=== PATIENT | male | born 1995 | race Caucasian/White ===

== ENCOUNTER 2022-08-13 22:35 | Outpatient (CLI) | payer OTHER, SELFPAY | END 2022-08-13 22:36 | disposition home or self-care (01) | LOC: AMB 09-14 12:08 | PROVIDERS: Visit Provider Family Medicine | DX: R51.9 Headache, unspecified (principal); F91.9 Conduct disorder, unspecified; F29 Unspecified psychosis not due to a substance or known physiological condition | CPT/HCPCS: A0425; A0427 ==

== ENCOUNTER 2022-09-01 22:47 | Outpatient (CLI) | payer OTHER, SELFPAY | END 2022-09-01 22:48 | disposition home or self-care (01) | LOC: AMB 09-22 00:37 | PROVIDERS: Visit Provider Internal Medicine | DX: R45.850 Homicidal ideations (principal) | CPT/HCPCS: A0425; A0427 ==

== ENCOUNTER 2022-09-30 21:26 | Outpatient (CLI) | payer OTHER, SELFPAY | END 2022-09-30 21:27 | disposition home or self-care (01) | LOC: AMB 10-05 02:47 | PROVIDERS: Visit Provider Family Medicine | DX: F29 Unspecified psychosis not due to a substance or known physiological condition (principal) | CPT/HCPCS: A0425; A0429 ==

== ENCOUNTER 2022-10-01 22:16 | Outpatient (CLI) | payer OTHER, SELFPAY | END 2022-10-01 22:17 | disposition home or self-care (01) | LOC: AMB 10-05 12:32 | PROVIDERS: Visit Provider Internal Medicine | DX: R45.851 Suicidal ideations (principal) | CPT/HCPCS: A0425; A0429 ==

== ENCOUNTER 2022-10-10 22:58 | Outpatient (CLI) | payer OTHER, SELFPAY | END 2022-10-10 22:59 | disposition home or self-care (01) | LOC: AMB 10-11 01:59 | PROVIDERS: Visit Provider Family Medicine | DX: F91.9 Conduct disorder, unspecified (principal) | CPT/HCPCS: A0425; A0427 ==

== ENCOUNTER 2022-10-12 21:24 | Outpatient (CLI) | payer OTHER, SELFPAY | END 2022-10-12 21:25 | disposition home or self-care (01) | LOC: AMB 10-17 17:02 | PROVIDERS: Visit Provider Internal Medicine | DX: F29 Unspecified psychosis not due to a substance or known physiological condition (principal) ==

== ENCOUNTER 2022-12-14 22:51 | Outpatient (CLI) | payer OTHER, SELFPAY | END 2022-12-14 22:52 | disposition home or self-care (01) | PROVIDERS: Visit Provider Internal Medicine | DX: F29 Unspecified psychosis not due to a substance or known physiological condition (principal) | CPT/HCPCS: A0425; A0429 ==

== ENCOUNTER 2023-04-27 23:46 | Outpatient (CLI) | payer OTHER, SELFPAY | END 2023-04-27 23:47 | disposition home or self-care (01) | LOC: AMB 04-29 09:48 | PROVIDERS: Visit Provider Family Medicine | DX: R51.9 Headache, unspecified (principal) | CPT/HCPCS: A0425; A0429 ==

== ENCOUNTER 2024-04-06 22:58 | Outpatient (CLI) | payer OTHER, SELFPAY | END 2024-04-06 22:59 | disposition home or self-care (01) | LOC: AMB 04-13 18:49 | PROVIDERS: Visit Provider Family Medicine | DX: F41.9 Anxiety disorder, unspecified (principal) | CPT/HCPCS: A0425; A0427 ==

== ENCOUNTER 2024-12-12 22:42 | Outpatient (CLI) | payer OTHER, SELFPAY | END 2024-12-12 22:43 | disposition home or self-care (01) | LOC: AMB 12-14 14:06 | PROVIDERS: Visit Provider Family Medicine | DX: R45.851 Suicidal ideations (principal) | CPT/HCPCS: A0425; A0429 ==

== ENCOUNTER 2025-03-27 23:20 | Outpatient (CLI) | payer OTHER, SELFPAY | END 2025-03-27 23:21 | disposition home or self-care (01) | LOC: AMB 03-29 11:37 | PROVIDERS: Visit Provider Family Medicine | DX: R45.851 Suicidal ideations (principal) | CPT/HCPCS: A0425; A0429 ==

== ENCOUNTER 2025-03-29 18:27 | Outpatient (CLI) | payer OTHER, SELFPAY ==
--- OUTSIDE RECORDS SUMMARY | 2025-03-03 12:00 | XMS_ITS | Encounter Summary ---
Author Organization [employer] Address [address] [place] [address] Care Team Providers Care [employer] Name Role Phone Jocelyne Devlin PA-C Primary Care Provider [phone] Encounter Details Date Type Department Care Team (Late Contact Info) Description 03/03/2025 12:00 PM CDT Lab Visit [facility] [address] [place] [address] Medication monitoring encounter (Primary Dx); Encounter for long-term (current) use of medications Social History Tobacco Use Types Packs/Day Years Used Date Smoking Tobacco: Never Smokeless Tobacco: Never Alcohol Use Standard Drinks/Week Comments No 0 (1 standard drink = 0.6 oz pur e alcohol) PHQ-2 Answer Date Recorded PHQ-2 Score 3 06/10/2019 Financial Resource Strain Answer Date R ecorded Is it hard for you to pay fo r the very basics like food, housing, medical care or heating? No 01/02/2023 Food Insecurity Answer Date Recorded Does your food run out before you have the money to buy more? No 01/02/2023 Transportation Needs Answer Date Record ed Does a lack of transportatio n keep you from your medical appointments or from getting your medications? 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 [address] Scheduled Orders Name Type Priority Associated Diagnoses Orde r Schedule CBC and Differential Lab Routine Encounter for long-term (current) use of medications 4 weeks for 12 Occurrences starting 03/03/2025 until 03/03/2026 documented as of this encounter Procedures Procedure Name Priority Date/Time Associated Diagnosis Comments PRELIMINARY AUTOMATED NEUT COUNT Routine 03/03/2025 11:58 AM CDT Encounter for long-term (current) use of medications CBC WITH DIFFERENTIAL REVIEW Routine 03/03/2025 11:58 AM CDT Encounter for long-term (current) use of medications HEMATOLOGY, PRELIM Routine 03/03/2025 11 :58 AM CDT Encounter for long-term (current) use of medications documented in this encounter Results * (ABNORMAL) CBC with Differential Review (03/03/2025 11:58 AM CDT) [facility] Hematology Review 03/03/2025 7:03 PM CDT [facility] WBC 4.6 3.5 - 10.5 x10(9)/L 03/03/2025 7:03 PM CDT [facility] RBC 4.55 4.32 - 5.72 x10(12)/L 03/03/2025 7:03 PM CDT [facility] Hemoglobin 13.4(L) 13.5 - 17.5 g/dL 03/03/2025 7:03 PM CDT [facility] HCT 40.6 38.8 - 50.0 % 03/03/2025 7:03 PM CDT [facility] MCV 89.2 80.0 - 100.0 fL 03/03/2025 7:03 PM CDT [facility] MCH 29.5 27.6 - 33.3 pg 03/03/2025 7:03 PM CDT [facility] MCHC 33.0 31.5 - 35.2 g/dL 03/03/2025 7:03 PM CDT [facility] RDW 13.7 11.9 - 15.5 % 03/03/2025 7:03 PM CDT [facility] Platelets 176 150 - 450 x10(9)/L 03/03/2025 7:03 PM CDT [facility] Automated NRBC 0 <=0 /100 WBC 03/03/2025 7:03 PM CDT [facility] Neutrophil Absolute 2.1 1.7 - 7.0 10(9)/L 03/03/2025 7:03 PM CDT [facility] Lymphocyte Absolute 2.1 1.0 - 4.8 10(9)/L 03/03/2025 7:03 PM CDT [facility] Monocyte Absolute 0.3 0.2 - 0.9 10(9)/L 03/03/2025 7:03 PM CDT [facility] Eosinophil Absolute 0.2 0.0 - 0.5 10(9)/L 03/03/2025 7:03 PM CDT [facility] Basophil Absolute 0.0 0.0 - 0.3 10(9)/L 03/03/2025 7:03 PM CDT [facility] Immature Granulocyte % 0.7(H) 0.0 - 0.5 % 03/03/2025 7:03 PM CDT [facility] Immature Granulocyte Absolute 0.0 <=0.0 10(9)/L 03/03/2025 7:03 PM CDT [facility] Blood Venipuncture / Unknown 03/03/2025 11:58 AM CDT 03/03/2025 12:30 PM CDT Shashi Rodriguez APRN, PBX OPERATOR LAB_1 Final Result Performing Organization Address [facility] Co de Phone Number [facility] [address] * Prelim Automated Neutrophil Count (03/03/2025 11:58 AM CDT) [facility] Automated Neutrophil Count (Prelim) 2.0 10(9)/L 03/03/2025 12:30 PM CDT [facility] Blood Venipuncture / Unknown 03/03/2025 11:58 AM CDT 03/03/2025 11:58 AM CDT Shashi Rodriguez APRN, PBX OPERATOR LAB_1 Final Result Performing Organization Address [facility] de Phone Number [facility] [address] [email or web address] [phone] * (ABNORMAL) Prelim WBC, HGB, and PLT (03/03/2025 11:58 AM CDT) [facility] Signature WBC 4.7 3.5 - 10.5 x10(9)/L 03/03/2025 12:29 PM CDT [facility] Hemoglobin 13.4(L) 13.5 - 17.5 g/dL 03/03/2025 12:29 PM CDT [facility] Platelets 175 150 - 450 x10(9)/L 03/03/2025 12:29 PM CDT [facility] Blood Venipuncture / Unknown 03/03/2025 11:58 AM CDT 03/03/2025 11:58 AM CDT Shashi Rodriguez APRN, PBX OPERATOR LAB_1 Final Result Performing Organization Address [facility] de Phone Number [facility] [address] [email or web address] [address] documented in this encounter Visit Diagnoses Diagnosis Medication monitoring encounter- Primary Encounter for therapeutic drug monitoring Encounter for long-term (current) use of medications Encounter for long-term (current) use of other medications documented in this encounter Care Teams [employer] Relationship Specialty Start Date End Date Jocelyne Devlin PA-C [address] [place] [place] [address] PCP - General Physician Medical Coding Specialist 08/28/16 documented as of this encounter
--- OUTSIDE RECORDS SUMMARY | 2025-03-27 23:56 | XMS_ITS | Encounter Summary ---
Author Organization [facility] Address [address] [place] [address]. [place] [address] Care Team Providers Care [employer] Internet Sales Manager Name Role Phone Kolton Abreu MD Primary Care Provider [phone] Provider, Behavioral Unavailable Unavailable Gregorio Wilson PA-C Unavailable [phone] Mitchel Nassar AuD Unavailable [phone] Gabrielle Machado MD Unavailable [phone] Gabrielle Machado MD Unavailable [phone] Reason for Visit * Reason Comments Suicidal Encounter Details Date Type Department Care Team (Late st Contact Info) Description 03/27/2025 11:56 PM CDT - 03/28/2025 12:44 PM CDT Emergency [facility] Emergency Dept [address] [place] [address] Jerson Lopez MD [facility] [address] [place] [address] Lewis Trimble MD [facility] [address] [place] [address] Joon Grigsby MD [facility] [address] [place], [place] [id number] Suicidal ideation Discharge Disposition: Care Home Social History Tobacco Use Types Packs/Day Years Used Date Smoking Tobacco: Never Smokeless Tobacco: Never Alcohol Use Standard Drinks/Week Comments Never 0 (1 standard drink = 0.6 oz pur e alcohol) PHQ-2 Answer Date Recorded PHQ-2 Score 0 01/19/2025 Adolescent Education Answer Date Record ed Getting School Help Needed Not on file 07/23 Sex and Gender Information Value Date Recorded Sex Assigned at Not on file Legal Sex 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 Gender Identity Not on file Sexual Orientation Not on file documented as of this encounter Last Filed Vital Signs Vital Sign Reading Time Taken Comments Blood Pressure 135/82 03/28/2025 11:34 AM CDT Pulse 81 03/28/2025 11:34 AM CDT Temperature 36.4 C (97.6 F) 03/28/2025 1:32 AM CDT Respiratory Rate 18 03/28/2025 7:39 AM CDT Oxygen Saturation 96% 03/28/2025 11:34 AM CDT Inhaled Oxygen Concentration - - Weight - - Height - - Body Mass Index - - documented in this encounter Functional Status * Calculated C-SSRS Risk Score (Lifetime/Recent) Answer Date of Assessment Author No Risk Indicated 03/28/2025 11:46 AM CDT Paylen , Mo V, TEASEL GIG OPERATOR * Question Answer Date of Assessment Author 3. Active Suicidal Ideation with any Methods (Not Plan) Without Intent to Act (Lifetime) Yes 03/28/2025 11:44 AM CDT Paylen, Mo V, TEASEL GIG OPERATOR 4. Active Suicidal Ideation with Some Intent to Act, Without Specific Plan (Lifetime) Yes 03/28/2025 11:44 AM CDT Paylen, Mo V, TEASEL GIG OPERATOR 5. Active Suicidal Ideation with Specific Plan and Intent (Lifetime) No 03/28/2025 11:44 AM CDT Paylen, Mo V, MAR ELEMENT WINDING MACHINE TENDER * Question Answer Date of Assessment Author Frequency (Past 1 Month) 1 03/28/2025 11:46 AM CDT Paylen, Mo V, TEASEL GIG OPERATOR Duration (Past 1 Month) 1 03/28/2025 11:46 AM CDT Paylen, Mo V, TEASEL GIG OPERATOR Controllability (Past 1 Month) 3 03/28/2025 11:46 AM CDT Paylen, Mo V, TEASEL GIG OPERATOR Deterrents (Past 1 Month) 1 03/28/2025 11:4 6 AM CDT Paylen, Mo V, TEASEL GIG OPERATOR * Question Answer Date of Assessment Author Actual Attempt (Past 3 Months) No 03/28/2025 11:46 AM CDT Paylen, Mo V, TEASEL GIG OPERATOR Has subject engaged in non-suicidal self-injurious behavior? (Past 3 Months) No 03/28/2025 11:46 AM CDT Paylen, Mo V, TEASEL GIG OPERATOR Interrupted Attempts (Past 3 Months) No 03/28/2025 11:46 AM CDT Paylen, Mo V, LI ELEMENT WINDING MACHINE TENDER Aborted or Self-Interrupted Attempt (Past 3 Months) No 03/28/2025 11:46 AM CDT Paylen, Mo V , TEASEL GIG OPERATOR Preparatory Acts or Behavior (Past 3 Months) No 03/28/2025 11:46 AM CDT Paylen, Mo V, LI ELEMENT WINDING MACHINE TENDER * Question Answer Date of Assessment Author Actual Attempt (Lifetime) No 03/28/2025 11:4 4 AM CDT Paylen, Mo V, TEASEL GIG OPERATOR Has subject engaged in non-suicidal self-injurious behavior? (Lifetime) No 03/28/2025 11:44 AM CDT Paylen, Mo V, L ICSW Interrupted Attempts (Lifetime) No 11:44 AM CDT Paylen, Mo V, TEASEL GIG OPERATOR Aborted or Self-Interrupted Attempt (Lifetime) No 03/28/2025 11:44 AM CDT Paylen, Mo V, LI ELEMENT WINDING MACHINE TENDER Preparatory Acts or Behavior (Lifetime) No 03/28/2025 11:44 AM CDT Paylen, Mo V, LI ELEMENT WINDING MACHINE TENDER * Question Answer Date of Assessment Author Description of Most Severe Ideation (Lifetime) Patient often reports S/I when he is disappointed or frustrated. No known suicide attempts. 03/28/2025 11:44 AM CDT Paylen, Mo V, TEASEL GIG OPERATOR Frequency (Lifetime) 1 03/28/2025 11:44 AM CDT Paylen, Mo V, TEASEL GIG OPERATOR Duration (Lifetime) 1 03/28/2025 1 1:44 AM CDT Paylen, Mo V, TEASEL GIG OPERATOR Controllability (Lifetime) 3 03/28 11:44 AM CDT Paylen, Mo V, TEASEL GIG OPERATOR Deterrents (Lifetime) 1 03/28/2025 11:44 AM CDT Paylen, Mo V, TEASEL GIG OPERATOR documented as of this encounter Discharge Instructions * Discharge Instructions* Joon Grigsby MD - 03/28/2025 6:28 AM CDT Please return to ER with any new or troubling symptoms. Discharge Instructions Mental Health Concerns You were seen today for mental health concerns, such as depression, anxiety, or suicidal thinking. Your provider feels that you do not require hospitalization at this time. However, your symptoms maybecome worse, and you may need to return to the Emergency Department. Most treatments of depressionand suicidal thoughts are a process rather than a single intervention. Medications and counseling can take several weeks or more to help. Generally, every Emergency Department visit should have a follow-up clinic visit with either a primary or a specialty clinic/provider. Please follow-up as instructed by your emergency provider today. By accepting these discharge instructions: You promise to not harm yourself or others. You agree that if you feel you are becoming unable to keep that promise, you will do something to help yourself before you do anything to harm yourself or others. You agree to keep any safety plan arranged on your visit here today. You agree to take any medication prescribed or recommended by your provider. If you are getting worse, you can contact a friend or a family member, contact your counselor or family provider, contact a crisis line, or other options discussed with the provider or therapist today. At any time, you can call 911 and return to the Emergency Department for more help. You understand that follow-up is essential to your treatment, and you will make and keep appointments recommended on your visit today. How to improve your mental health and prevent suicide: Involve others by letting family, friends, counselors know. Do not isolate yourself. Avoid alcohol or drugs. Remove weapons, poisons from your home. Try to stick to routines for eating, sleeping and getting regular exercise. Try to get into sunlight. Bright natural light not only treats seasonal affective disorder but alsodepression. Increase safe activities that you enjoy. If you feel worse, contact [phone] ( ), or call 911, or your primary provider/counselor for additional assistance. If you were given a prescription for medicine here today, be sure to read all of the information (including the package insert) that comes with your prescription. This will include important information about the medicine, its side effects, and any warnings that you need to know about. The pharmacist who fills the prescription can provide more information and answer questions you may have about the medicine. If you have questions or concerns that the pharmacist cannot address, please call or return to the Emergency Department. Remember that you can always come back to the Emergency Department if you are not able to see your regular provider in the amount of time listed above, if you get any new symptoms, or if there is anything that worries you. * Attachments The following attachments cannot be sent through Care Everywhere. * Mental Health Crisis: Getting Help: General Info (Tristanian) documented in this encounter Medications at Time of Discharge acetic acid (VOSOL) 2 % otic solution Place 4 drops into both ears twice a week amLODIPine (NORVASC) 5 MG tablet Take 1 tablet by mouth daily. 06/15/2021 atorvastatin (LIPITOR) 20 MG tablet Take 20 mg by mouth at bedtime. atropine 1 % ophthalmic solution Place 1-2 drops under the tongue 3 times daily. clindamycin (CLEOCIN T) 1 % external lotion Apply topically 2 times daily cloZAPine (CLOZARIL) 100 MG tablet Take 300 mg by mouth at bedtime. Take with 50mg tablet for total dose of 350 mg at bedtime cloZAPine (CLOZARIL) 25 MG tablet Take 100 mg by mouth daily. cloZAPine (CLOZARIL) 50 MG tablet Take 50 mg by mouth at bedtime. Take with [id number] tablets for total dose of 350 mg at bedtime divalproex sodium delayed-release (DEPAKOTE) [address] tablet Take 1,000 mg by mouth 2 times daily. 07/18/2021 docusate sodium (COLACE) 100 MG capsule Take 100 mg by mouth 2 times daily escitalopram (LEXAPRO) 20 MG tablet Take 20 mg by mouth daily. fish oil-omega-3 fatty acids 500 MG capsule Take 500 mg by mouth daily fluticasone (FLONASE) 50 MCG/ACT nasal spray INSTILL 2 SPRAYS IN EACH NOSTRIL DAILY 01/04/2021 ketoconazole (NIZORAL) 2 % external shampoo Apply topically every 3 days After showers levothyroxine (SYNTHROID/LEVOT HROID) 50 MCG tablet Take 50 mcg by mouth daily 01/02/2022 loratadine (CLARITIN) 10 MG tablet Take 10 mg by mouth daily 05/09/2022 melatonin 5 MG CAPS Take 5 mg by mouth At Bedtime OLANZapine zydis (ZYPREXA) [address] 15 mg under the tongue daily as needed (extreme agitation) omeprazole (PRILOSEC) [address] capsule Take 20 mg by mouth daily 01/22/2022 ondansetron (ZOFRAN ODT) 4 MG ODT tab Take 4 mg by mouth every 8 hours as needed for nausea polyethylene glycol (MIRALAX) 17 GM/Dose powder Take 1 capful by mouth daily propranolol (INDERAL) 40 MG tablet Take 40 mg by mouth 3 times daily 05/09/2022 documented as of this encounter Progress Notes * Benitez Garcia LGSW - 03/28/2025 2:36 AM CDT 03/28/25 0235 Collateral Information Is there collateral information No (Attempted Yenifer (PREPARED FOODS SUPERVISOR, ) & Jo-Ann (oncall supervisior, ): no anwer and LVM) Cosigned by Alissa Borrego LICSW at 03/30/2025 10:33 AM CDT Associated attestation - Alissa Borrego LICSW - 03/30/2025 10:33 AM CDT Service Performed and Documented by Psychotherapist Trainee working under clincial supervision of BRITT Arreola LICSW. Note reviewed and approved on March 30, 2025. BRITT Arreola LICSW, EXPORT PACKER Lead Licensed Psychotherapist Triage & Transition Services (DEC) documented in this encounter Consult Notes * Jaden Malhotra LICSW - 03/28/2025 10:30 AM CDTAssociated Order(s): DIAGNOSTIC EVALUATION CENTER (DEC) ASSESSMENT ORDER Diagnostic Evaluation Consultation Crisis Assessment Patient Name: Simba Nassar Age: [age] year old Legal Sex: male Gender Identity: male Pronouns: Race: White Ethnicity: or Language: Tristanian Patient was assessed: Virtual: [employer] Crisis Assessment Start Date: 03/28/25 Crisis Assessment Start Time: 1044 Crisis Assessment Stop Time: 0114 Patient location: [facility] Emergency Dept ED20 Referral Data and Chief Complaint Simba Nassar presents to the ED via EMS. Patient is presenting to the ED for the following concerns: Anxiety, Suicidal ideation, Depression. Factors that make the mental health crisis life threatening or complex are: Simba Nassar is a [age] year old male who identifies as and Yazidi. Regular visits to the ED for vague complaints of S/I, suspected secondary gain for snacks/attention. Patient has a hx of PDD, FAS, ADHD, ASD and Intermittent Explosive Disorder. He resides in a alf. Patient reports being sad/frustrated that his mother could not come for a visit yesterday. According to report patient left alf and was found by police. Patient reported at t hat time feeling suicidal, which resulted in visit to the ED for further evaluation. Upon interviewthe patient is calm, cooperative, flat and is not able to provide much detail relating to mental health symptoms. Patient states is is prescribed medications and is compliant; he states his staff administer medication. Patient states he feeling suicidal sometimes, but I wouldn't do that. Patient denies use of substances. He reports his legal guardians are his parents.. Informed Consent and Assessment Methods Explained the crisis assessment process, including applicable information disclosures and limits toconfidentiality, assessed understanding of the process, and obtained consent to proceed with the assessment. Assessment methods included conducting a formal interview with patient, review of medical records, collaboration with medical staff, and obtaining relevant collateral information from familyand community providers when available. : done History of the Crisis Pt has multiple visits to the ED, per notes suspected visits to ED for secondary gain of snacks andattention. Client often reports S/I when disappointed/upset. Patient has prior mental health admissions, most recently at [facility] in January of 2016. Mental health dx include PMH: FAS, ASD, ADHD, DD, IEPand PDD. Patient's adoptive parents are his legal guardians. Patient denies previous suicide attempt. Brief Psychosocial History Family: Single, Children no Support System: Facility resident(s)/Staff, Parent(s) Employment Status: disabled Source of Income: disability Financial Environmental Concerns: none Current Hobbies: social media/computer activities, television/movies/videos Barriers in Personal Life: mental health concerns, lack of motivation, behavioral concerns, cognitive limitations Significant Clinical History Current Anxiety Symptoms: excessive worry, anxious Current Depression/Trauma: withdrawl/isolation, avoidance, apathy, sense of doom, thoughts of /suicide Current Somatic Symptoms: anxious Current Psychosis/Thought Disturbance: Current Eating Symptoms: Chemical Use History: Alcohol: None Benzodiazepines: None Opiates: None Cocaine: None Marijuana: None Other Use: None Past diagnosis: Anxiety Disorder, ADHD, Depression, Autism Family history: Substance Use Disorder Past treatment: Individual therapy, Case management, Primary Care, Supportive Living Environment (alf, longterm house, etc), Psychiatric Medication Management, Inpatient Hospitalization Details of most recent treatment: Enzo lives in a alf and receives medication management andbehavioral coaching. Other relevant history: Have there been any medication changes in the past two weeks: no Is the patient compliant with medications: yes Collateral Information Is there collateral information: No (No, contacted both parents/legal guardians, no answer- Sergio- [phone] and mother Sruthi [phone]. Left voicemail on Sergio's phone 03/28 @ 11:35 am) Collateral information name, relationship, phone number: What happened today: What is different about patient's functioning: What do you think the patient needs: Has patient made comments about wanting to kill themselves/others: If d/c is recommended, can they take part in safety/aftercare planning: Additional collateral information: Risk Assessment [place] Suicide Severity Rating Scale Full Clinical Version: Suicidal Ideation Q1 Wish to be (Lifetime): Yes Q2 Non-Specific Active Suicidal Thoughts (Lifetime): Yes 3. Active Suicidal Ideation with any Methods (Not Plan) Without Intent to Act (Lifetime): Yes 4. Active Suicidal Ideation with Some Intent to Act, Without Specific Plan (Lifetime): Yes 5. Active Suicidal Ideation with Specific Plan and Intent (Lifetime): No Q6 Suicide Behavior (Lifetime): no Intensity of Ideation (Lifetime) Description of Most Severe Ideation (Lifetime): Patient often reports S/I when he is disappointed or frustrated. No known suicide attempts. Frequency (Lifetime): Less than once a week Duration (Lifetime): Fleeting, few seconds or minutes Controllability (Lifetime): Can control thoughts with some difficulty Deterrents (Lifetime): Deterrents definitely stopped you from attempting suicide Suicidal Behavior (Lifetime) Actual Attempt (Lifetime): No Has subject engaged in non-suicidal self-injurious behavior? (Lifetime): No Interrupted Attempts (Lifetime): No Aborted or Self-Interrupted Attempt (Lifetime): No Preparatory Acts or Behavior (Lifetime): No [place] Suicide Severity Rating Scale Recent: Suicidal Ideation (Recent) Q1 Wished to be (Past Month): yes Q2 Suicidal Thoughts (Past Month): yes Q3 Suicidal Thought Method: no Q4 Suicidal Intent without Specific Plan: no Q5 Suicide Intent with Specific Plan: no Level of Risk per Screen: low risk Intensity of Ideation (Recent) Frequency (Past 1 Month): Less than once a week Duration (Past 1 Month): Fleeting, few seconds or minutes Controllability (Past 1 Month): Can control thoughts with some difficulty Deterrents (Past 1 Month): Deterrents definitely stopped you from attempting suicide Suicidal Behavior (Recent) Actual Attempt (Past 3 Months): No Has subject engaged in non-suicidal self-injurious behavior? (Past 3 Months): No Interrupted Attempts (Past 3 Months): No Aborted or Self-Interrupted Attempt (Past 3 Months): No Preparatory Acts or Behavior (Past 3 Months): No Environmental or Psychosocial Events: challenging interpersonal relationships, impulsivity/recklessness, helplessness/hopelessness, social isolation, neither working nor attending school Protective Factors: Protective Factors: strong amos to family unit, community support, or employment, lives in a responsibly safe and stable environment, good treatment engagement, able to access care without barriers, help seeking Does the patient have thoughts of harming others? Feels Like Hurting Others: no Previous Attempt to Hurt Others: no Is the patient engaging in sexually inappropriate behavior?: no Does Patient have a known history of aggressive behavior: Yes Where/who has aggression been against (people, property, self, etc): Patient has IED and has been aggressive towards property and people in the past. No aggressive behaviors this visit. When was the last episode of aggression: Unknown Where has the violence occurred (home, community, school): [facility] Trigger to aggression (if known): Wants to reside with parents Has aggression occurred as a result of MH concerns/diagnosis: Yes Does patient have history of aggression in hospital: No recent episodes of aggression while in the hospital. Is the patient engaging in sexually inappropriate behavior? no Mental Status Exam Affect: Flat, Constricted Appearance: Appropriate Attention Span/Concentration: Attentive (Needs prompts at times or question reworded due to cognitive capactity) Eye Contact: Variable Fund of Knowledge: Delayed Language /Speech Content: Fluent Language /Speech Volume: Soft, Normal Language /Speech Rate/Productions: Slow Recent Memory: Variable Remote Memory: Variable, Poor Mood: Anxious, Apathetic Orientation to Person: Yes Orientation to Place: Yes Orientation to Time of Day: Yes Orientation to Date: Yes Situation (Do they understand why they are here?): Yes Psychomotor Behavior: Normal Thought Content: Suicidal (Reports S/I no plan or intent.) Thought Form: Intact Mini-Cog Assessment Number of Words Recalled: Clock-Drawing Test: Three Item Recall: Mini-Cog Total Score: Medication Psychotropic medications: Medication Orders - Psychiatric (From admission, onward) Start Dose/Rate Route Frequency Ordered Stop 03/28/25 1100 cloZAPine (CLOZARIL) tablet 100 mg Note to Pharmacy: FLAVOR TANK TENDER Sig:Take 100 mg by mouth daily. 100 mg Oral DAILY 03/28/25 0958 03/28/25 1000 escitalopram (LEXAPRO) tablet 20 mg Note to Pharmacy: FLAVOR TANK TENDER Sig:Take 20 mg by mouth daily. 20 mg Oral DAILY 03/28/25 0958 03/28/25 0119 OLANZapine zydis (zyPREXA) ODT tab 10 mg 10 mg Oral 3 TIMES DAILY PRN 03/28/25 0119 Current Care Team Patient Care Team: Kolton Abreu MD as PCP - General (Pediatrics) PROVIDER, BEHAVIORAL as DEC HOTEL RESERVATION AGENT Gregorio Wilson PA-C as Physician Acrylic Fabricator (Emergency Medicine) Mitchel Nassar AuD (Audiology) Gabrielle Machado MD as MD (Otolaryngology) Gabrielle Machado MD as Assigned Surgical Provider Diagnosis Patient Active Problem List Diagnosis Code Aggressive behavior R46.89 Pervasive developmental disorder F84.9 Chronic constipation K59.09 Depression, major F32.9 Diabetes mellitus type 2, uncomplicated (H) E11.9 ADHD (attention deficit hyperactivity disorder) F90.9 Episodic mood disorder F39 Essential hypertension I10 Hypertriglyceridemia E78.1 Hypothyroidism E03.9 Intermittent explosive disorder F63.81 Developmental delay R62.50 Autism spectrum disorder F84.0 Primary Problem This Admission Active Hospital Problems Autism spectrum disorder Developmental delay Pervasive developmental disorder Clinical Summary and Substantiation of Recommendations Clinical Substantiation: Patient has hx of multiple visits to ED for S/I believed to be secondary gain for attention and snacks. Patient admits he became upset last night that his mom could not visithim. He admits to S/I, denies a plan or intent. He denies hx of suicide attempts. Patient resides in alf and has staff available at all times. He denies H/I, SIB, psychosis or access to weapons. Frequently reports S/I when upset. Goals for crisis stabilization: assess for risk/safety Next steps for Care Team: Discharge back to alf Treatment Objectives Addressed: rapport building, processing feelings, safety planning, identifyingan appropriate aftercare plan, assessing safety Therapeutic Interventions: Engaged in safety planning Has a specific means been identified for suicidal/homicide actions: No If yes, describe: Explain action steps toward mitigation: Document completion of mitigation actions: The follow up action still needed prior to discharge: Patient coping skills attempted to reduce the crisis: Playing video games, talking to staff/parents. Calls EMS often for S/I Disposition Recommended referrals: Medication Management, Individual Therapy, Programmatic Care Reviewed case and recommendations with attending provider. Attending Name: Dr. Leos Attending concurs with disposition: yes Patient and/or validated legal guardian concurs with disposition: yes (Called guardians multiple times, no call back at this time 12:10 pm. Patient agreeable to returning to alf.) Final disposition: discharge; believed to be baseline behavior/coping strategy when frustrated. No hx of suicide attempts. No SIB. Awaiting parents/guardians to return call for input/discharge planning. Left voicemail for father to call back, called multiple times mother and father's phones, mother's phone goes straight to . Legal status: Guardian/ad litum (Patient's adoptive parents are his legal guardians.) Reviewed court records: yes Assessment Details Total duration spent with the patient: 30 min CPT code(s) utilized: 01931 - Psychotherapy for Crisis - 60 (30-74*) min KIAH Isaac, Psychotherapist [facility] - Triage & Transition Services Callback: [phone] 03/28/2025 12:11 PM documented in this encounter ED Notes * Joon Grigsby MD - 03/28/2025 12:09 PM CDT Received this patient in sign-out from mild colleague Dr. Trimble. Please refer to earlier documentation. Patient was seen and evaluated by BELL. Per report, patient was upset that family could not visit yesterday. He was reporting suicidal ideation though affirmed he would not harm himself and has no prior history of suicide attempts. BELL did feel he would be appropriate for discharge back to his alf. I was able to reach the patient's mother, Sruthi, and reviewed the history. She also feelscomfortable with patient returning back to his alf. Patient be discharged home. Welcome to return with any new or changing symptoms. Joon Grigsby MD 03/28/25 1210 * Gilda Benavidez, CINDY - 03/28/2025 8:48 AM CDT Breakfast tray provided, staff in the room with the pt. * Shayna Mariscal RN - 03/28/2025 6:50 AM CDT [facility] Mental Health Handoff Note Voluntary Does patient require 1:1? Yes Hold and rights been given and documented for patient: N/A Is the patient in scrubs? No Has the patient been searched? Yes Is the 15 minute observation tool up to date? Yes Was patient issued a welcome folder? No Room check completed this shift: Yes PSS3 and [place] Assessment/Reassessment this shift: C-SSRS ([place]) Date and Time Q1 Wished to be (Past Month) Q2 Suicidal Thoughts (Past Month) Q3 Suicidal Thought Method Q4 Suicidal Intent without Specific Plan Q5 Suicide Intent with Specific Plan Q6 Suicide Behavior (Lifetime) If yes to Q6, within past 3 months? Level of Risk per Screen Level of Risk per Screen User 03/28/25 0045 0-->no 1-->yes 0-->no 0-->no 0-->no 0-->no -- -- low risk ANZ Behavioral status of patient: Green Code 21 called this shift? No Use of restraints/seclusion this shift? No Most recent vital signs: Temp: 97.6 ??F (36.4 ??C) Temp src: Temporal BP: (!) 154/93 Pulse: 76 Resp: 20 O2 Device: None (Room air) Medications: Scheduled medication compliance? N/A PRN Meds administered this shift? Yes Medications OLANZapine zydis (zyPREXA) ODT tab 10 mg (10 mg Oral $Given 03/28/25 0128) ADLs Meal Provided this shift? Yes Hygiene items provided? Yes ADLs completed? Yes Date of last shower: [employer] T[employer]ER Any significant events this shift? No Any information that would be helpful in caring for this patient? Family present/updated? N/A Location of patient's belongings: with pt Critical Care Minutes: Does the patient need critical care minutes documented? No * Shayna Mariscal RN - 03/28/2025 2:39 AM CDT Pt refused to see DEC tonight, would prefer to see them in the morning. * Benitez Garcia LGSW - 03/28/2025 2:31 AM CDT Around 0230, PT refusing to engage in DEC assessment. Per ED nurse, Reattempt in AM. Benitez aVrgas DEC aircraft sheet metal mechanic Cosigned by Alissa Borrego LICSW at 03/30/2025 10:32 AM CDT Associated attestation - Alissa Borrego LICSW - 03/30/2025 10:32 AM CDT Service Performed and Documented by Psychotherapist Trainee working under clincial supervision of BRITT Arreola LICSW. Note reviewed and approved on March 30, 2025. BRITT Arreola LICSW, EXPORT PACKER Lead Licensed Psychotherapist Triage & Transition Services (DEC) * Shayna Mariscal, RN - 03/28/2025 1:20 AM CDT Pt continuous to exit room, redirectable back to room after extended time, patient insisting RN sitin room with him, becoming agitated, provider notified, Prns ordered and administered * Jerson Lopez MD - 03/28/2025 12:25 AM CDT Emergency Department Note History of Present Illness Chief Complaint Suicidal HPI Simba Nassar is a 29 year old male with history of type 2 diabetes, hypertension, and Asperger's disorder who presents at the emergency department for evaluation of suicidal. The patient's [facility] staff reports that Enzo was not able to see his mom today, because something came up and she missed her scheduled visit. He explains that this threw Enzo off, as the patient eloped from his alf around 2200 this evening, was found by police, and requested to present to the emergency department for suicidal ideation. [facility] staff admits that Enzo has a pattern of wanting to come to [facility] Emergency department because he likes the snacks and the staff. He endorses suicidal ideation, but denies a plan or homicidal ideation. He denies drug or alcohol use. [facility] staff claim that Enzo is presenting at baseline upon examination, as he will come to the hospital as a coping mechanism every 3-4 months when his parents miss their visit appointments, which typical occurs once a week. Independent Historian None Review of External Notes None Past Medical History Medical History and Problem List ADHD Asperger's disorder Chronic constipation Depressive disorder Type 2 diabetes Eczema alcohol syndrome Hypertension Hypertriglyceridemia Hypothyroidism Intermittent explosive disorder Obesity PDD (pervasive developmental disorder) Medications Norvasc Cogentin Clozaril Depakote Colace Levothyroxine Zyprexa Prilosec Inderal Semaglutide Topamax Surgical History Toenail exicison - bilateral Physical Exam No data found. Physical Exam General: the patient is awake and interactive HEENT: Moist mucous membranes, conjunctiva normal Pulmonary: Normal respiratory effort Cardiovascular: Well perfused Musculoskeletal: Moving 4 extremities grossly wnl, no deformities Neuro: No focal deficits Psych: Normal affect; SI, no HI Diagnostics Lab Results Labs Ordered and Resulted from Time of ED Arrival to Time of ED Departure - No data to display Imaging No orders to display EKG None Independent Interpretation None ED Course Medications Administered Medications OLANZapine zydis (zyPREXA) ODT tab 10 mg (10 mg Oral $Given 03/28/25 0128) Procedures Procedures Discussion of Management None ED Course ED Course as of 03/28/25 0129 Ravenel Mar 28, 2025 0037 I obtained history and examined the patient as noted above Additional Documentation None Medical Decision Making / Diagnosis [facility] Diagnoses: None MIPS None MDM Simba Nassar is a 29 year old male with history of Asperger's, FAS, DM2 presenting to the ER from his alf for evaluation of suicidal ideation after not being able to see his mom for scheduled visit today. Denies any specific plan or intent. Denies homicidal ideation. Denies physical concerns or complaints. He is vitally stable and overall well appearing. No external signs of trauma. He is medically cleared. DEC has been consulted but apparently will take until the AM for assessment.He is calm and cooperative here. He will be signed out to my partner pending DEC evaluation for final disposition. Disposition Patient signed out to my partner pending DEC evaluation for final disposition Diagnosis ICD-10-CM 1. Suicidal ideation R45.851 Discharge Medications New Prescriptions No medications on file Scribe Disclosure: I, Nathalia Morley, am serving as a scribe at 12:41 AM on 03/28/2025 to document services personally performed by Jerson Lopez MD based on my observations and the provider's statements to me. Jerson Lopez MD 03/28/25 0205 * Shayna Mariscal RN - 03/28/2025 12:08 AM CDT BIBSam presenting with Suicide ideation with no plan, pt left alf, once found pt stated he wanted to hurt himself, and that he miss his mom. Per alf staff, pt was expected to see mom today and visit wasn't able to happen. EMS and staff also report pt has a history of wanted to come to the ED for snacks and to talk to the nurses. Pt reported to RN that he just miss his mom, pt denied suicide ideation, then stated he was unsure if he wanted to harm himself or anyone else, and asked for snacks. Pt now sitting up calm and cooperative in bed, snacks and fluids given. * Pattie Burgos RN - 03/27/2025 11:56 PM CDT Bed: ED20 Expected date: Expected time: Means of arrival: Comments: NF documented in this encounter Miscellaneous Notes * Pharmacy-Admission Medication History - RadhamesFarzaneh RPH - 03/28/2025 8:20 AM CDT Pharmacist Admission Medication History Admission medication history is complete. The information provided in this note is only as accurateas the sources available at the time of the update. Information Source(s): Caregiver via in-person Pertinent Information: None Changes made to [employer] medication list: Added: atorvastatin, atropine eye drops, escitalopram, clozapine 50mg Deleted: benztropine, glycopyrrolate, semaglutide tabs, topiramate, triamcinolone cream Changed: amlodipine 10mg --> 5mg, Depakote 1500mg at bedtime --> 1000mg bid Allergies reviewed with patient and updates made in EHR: yes Medication History Completed By: Farzaneh Ricci RPH 03/28/2025 8:20 AM [employer] T[employer]ER Med List Medication Sig Last Dose/Taking acetic acid (VOSOL) 2 % otic solution Place 4 drops into both ears twice a week Taking amLODIPine (NORVASC) 5 MG tablet Take 1 tablet by mouth daily. 03/27/2025 Morning atorvastatin (LIPITOR) 20 MG tablet Take 20 mg by mouth at bedtime. 03/27/2025 Bedtime atropine 1 % ophthalmic solution Place 1-2 drops under the tongue 3 times daily. 03/27/2025 Evening clindamycin (CLEOCIN T) 1 % external lotion Apply topically 2 times daily 03/27/2025 Evening cloZAPine (CLOZARIL) 100 MG tablet Take 300 mg by mouth at bedtime. Take with 50mg tablet for totaldose of 350 mg at bedtime 03/27/2025 Bedtime cloZAPine (CLOZARIL) 25 MG tablet Take 100 mg by mouth daily. 03/27/2025 Morning cloZAPine (CLOZARIL) 50 MG tablet Take 50 mg by mouth at bedtime. Take with [id number] tablets for total dose of 350 mg at bedtime 03/27/2025 Bedtime divalproex sodium delayed-release (DEPAKOTE) [address] tablet Take 1,000 mg by mouth 2 times daily.03/27/2025 Evening docusate sodium (COLACE) 100 MG capsule Take 100 mg by mouth 2 times daily 03/27/2025 Evening escitalopram (LEXAPRO) 20 MG tablet Take 20 mg by mouth daily. 03/27/2025 Morning fish oil-omega-3 fatty acids 500 MG capsule Take 500 mg by mouth daily 03/27/2025 Morning fluticasone (FLONASE) 50 MCG/ACT nasal spray INSTILL 2 SPRAYS IN EACH NOSTRIL DAILY 03/27/2025 Morning ketoconazole (NIZORAL) 2 % external shampoo Apply topically every 3 days After showers Taking levothyroxine (SYNTHROID/LEVOTHROID) 50 MCG tablet Take 50 mcg by mouth daily 03/27/2025 Morning loratadine (CLARITIN) 10 MG tablet Take 10 mg by mouth daily 03/27/2025 Morning melatonin 5 MG CAPS Take 5 mg by mouth At Bedtime 03/27/2025 Bedtime OLANZapine zydis (ZYPREXA) [address] 15 mg under the tongue daily as needed (extreme agitation) Taking As Needed omeprazole (PRILOSEC) [address] capsule Take 20 mg by mouth daily 03/27/2025 Morning ondansetron (ZOFRAN ODT) 4 MG ODT tab Take 4 mg by mouth every 8 hours as needed for nausea Taking As Needed polyethylene glycol (MIRALAX) 17 GM/Dose powder Take 1 capful by mouth daily 03/27/2025 Morning propranolol (INDERAL) 40 MG tablet Take 40 mg by mouth 3 times daily 03/27/2025 Evening documented in this encounter Plan of Treatment Upcoming Encounters Date Type Department Care Team (Late st Contact Info) Description 06/22/2025 11:00 AM CDT Office Visit [facility] [address] [phone] Mitchel Nassar, AuD [id number] [place] [address] [phone] 06/22/2025 11:40 AM CDT Office Visit [address] [phone] Gabrielle Machado MD [address] [place] [address] [phone] 07/14/2025 11:00 AM CDT Office Visit [facility] [place] [address] [place] [phone] Gabrielle Machado MD [address] [place] [phone] Lakia Watson PA-C [address] [address] documented as of this encounter Procedures Procedure Name Priority Date/Time Associated Diagnosis Comments CBC WITH PLATELETS AND DIFFERENTIAL STAT 03/28/2025 11:44 AM CDT CBC WITH PLATELETS & DIFFERENTIAL STAT 03/28/2025 11:44 AM CDT documented in this encounter Results * (ABNORMAL) CBC with platelets and differential (03/28/2025 11:44 AM CDT) WBC Count 6.6 4.0 - 11.0 10e3/uL 03/28/2025 12:22 PM CDT [facility] RBC Count 4.49 4.40 - 5.90 10e6/uL 03/28/2025 12:22 PM CDT [facility] Hemoglobin 13.0(L) 13.3 - 17.7 g/dL 03/28/2025 12:22 PM CDT [facility] Hematocrit 38.1(L) 40.0 - 53.0 % 03/28/2025 12:22 PM CDT [facility] MCV 85 78 - 100 fL 03/28/2025 12:22 PM CDT [facility] MCH 29.0 26.5 - 33.0 pg 03/28/2025 12:22 PM CDT [facility] MCHC 34.1 31.5 - 36.5 g/dL 03/28/2025 12:22 PM CDT [facility] RDW 13.3 10.0 - 15.0 % 03/28/2025 12:22 PM CDT [facility] Platelet Count 126(L) 150 - 450 10e3/uL 03/28/2025 12:22 PM CDT [facility] % Neutrophils 59 % 03/28/2025 12:22 PM CDT [facility] % Lymphocytes 30 % 03/28/2025 12:22 PM CDT [facility] % Monocytes 8 % 03/28/2025 12:22 PM CDT [facility] % Eosinophils 2 % 03/28/2025 12:22 PM CDT [facility] % Basophils 0 % 03/28/2025 12:22 PM CDT [facility] % Immature Granulocytes 0 % 03/28/2025 12:22 PM CDT [facility] NRBCs per 100 WBC 0 <1 /100 025 12:22 PM CDT [facility] Absolute Neutrophils 3.9 1.6 - 8.3 10e3/uL 03/28/2025 12:22 PM CDT [facility] Absolute Lymphocytes 2.0 0.8 - 5.3 10e3/uL 03/28/2025 12:22 PM CDT [facility] Absolute Monocytes 0.5 0.0 - 1.3 10e3/uL 03/28/2025 12:22 PM CDT [facility] Absolute Eosinophils 0.2 0.0 - 0.7 10e3/uL 03/28/2025 12:22 PM CDT [facility] Absolute Basophils 0.0 0.0 - 0.2 10e3/uL 03/28/2025 12:22 PM CDT [facility] Absolute Immature Granulocytes 0.0 <=0.4 10e3/uL 03/28/2025 12:22 PM CDT [facility] Absolute NRBCs 0.0 10e3/uL 03/28/2025 12:22 PM CDT LABORATORY Blood STRUCTURE OF RIGHT UPPER LIMB / Unknown Venipuncture / Unknown 03/28/2025 11:44 AM CDT 03/28/2025 11:46 AM CDT Joon Grigsby MD LAB - BLOOD ORDERABLES Fin al Result LABORATORY [facility] [address] [facility] (1st floor, no room number) [place] [phone], [facility] documented in this encounter Visit Diagnoses Diagnosis Suicidal ideation Pervasive developmental disorder Unspecified pervasive developmental disorder, current or active state Developmental delay Autism spectrum disorder Autistic disorder, current or active state documented in this encounter Administered Medications Inactive Administered Medications - up to 3 most recent administrations Medication Order MAR Action Action Date Dose Rate Site amLODIPine (NORVASC) tablet 5 mg 5 mg, Oral, DAILY, First dose on 03/28/25 at 1000 $Given 03/28/2025 11:54 AM CDT 5 mg cloZAPine (CLOZARIL) tablet 100 mg 100 mg, Oral, DAILY, First dose on 03/28/25 at 1100 $Given 03/28/2025 11:54 AM CDT 100 mg divalproex sodium delayed-release (DEPAKOTE) DR tablet 1,000 mg 1,000 mg, Oral, 2 TIMES DAILY, First dose on 03/28/25 at 1000, DO NOT CRUSH. $Given 03/28/2025 11:54 AM CDT 1,000 mg docusate sodium (COLACE) capsule 100 mg 100 mg, Oral, 2 TIMES DAILY, First dose on 03/28/25 at 1000, Hold for loose stools. $Given 03/28/2025 11:54 AM CDT 100 mg escitalopram (LEXAPRO) tablet 20 mg 20 mg, Oral, DAILY, First dose on 03/28/25 at 1000 $Given 03/28/2025 11:54 AM CDT 20 mg fluticasone (FLONASE) 50 MCG/ACT spray 2 spray 2 spray, Both Nostrils, DAILY, First dose on 03/28/25 at 1000 $Given 03/28/2025 11:54 AM CDT 2 sprays levothyroxine (SYNTHROID/LEVOTHROID) tablet 50 mcg 50 mcg, Oral, DAILY, First dose on 03/28/25 at 1000, Separate oral administration of iron- or calcium-containing products and levothyroxine by at least 4 hours. $Given 03/28/2025 11:54 AM CDT 50 mcg loratadine (CLARITIN) tablet 10 mg 10 mg, Oral, DAILY, First dose on 03/28/25 at 1000 $Given 03/28/2025 11:54 AM CDT 10 mg OLANZapine zydis (zyPREXA) ODT tab 10 mg 10 mg, Oral, 3 TIMES DAILY PRN, agitation, Starting on 03/28/25 at 0119, Not to exceed 30 mg in 24 hours. Doses should be at least 2 hours apart. Olanzapine to be used first line for agitation, unless otherwise specified. With dry hands, peel back foil backing and gently remove tablet. Do not push oral disintegrating tablet through foil backing. Administer immediately on tongue and oral disintegrating tablet dissolves in seconds, then swallow with saliva. Liquid not required. $Given 03/28/2025 1:28 AM CDT 10 mg pantoprazole (PROTONIX) EC tablet 40 mg 40 mg, Oral, DAILY, First dose on 03/28/25 at 1000 $Given 03/28/2025 11:54 AM CDT 40 mg polyethylene glycol (MIRALAX) Packet 17 g 17 g, Oral, DAILY, First dose on 03/28/25 at 1000, 1 Packet = 17 grams. Mix each gram with at least 1/2 ounce (15 mL) of water - 8 ounces for 17 g dose, 4 ounces for 8.5 g dose, 2 ounces for 4 g dose. Follow with the same volume of water. Hold for loose stools unless being administered as part of a bowel prep regimen or bowel clean out. $Given 03/28/2025 11:54 AM CDT 17 g propranolol (INDERAL) tablet 40 mg 40 mg, Oral, 3 TIMES DAILY, First dose on 03/28/25 at 1000 $Given 03/28/2025 11:54 AM CDT 40 mg documented in this encounter Active and Recently Administered Medications Times are shown in CDT. Scheduled Medication Order 03/26/2025 03/27/2025 03/28/2025 amLODIPine (NORVASC) tablet 5 mg 5 mg, Oral, DAILY, First dose on 03/28/25 at 1000 1154 ($Given - Provi jae: Abimbola Scanlon RN) cloZAPine (CLOZARIL) tablet 100 mg 100 mg, Oral, DAILY, First dose on 03/28/25 at 1100 1154 ($Given - Provi jae: Abimbola Scanlon RN) divalproex sodium delayed-release (DEPAKOTE) DR tablet 1,000 mg 1,000 mg, Oral, 2 TIMES DAILY, First dose on 03/28/25 at 1000, DO NOT CRUSH. 1154 ($Given - Provi jae: Abimbola Scanlon RN) docusate sodium (COLACE) capsule 100 mg 100 mg, Oral, 2 TIMES DAILY, First dose on 03/28/25 at 1000, Hold for loose stools. 1154 ($Given - Provi jae: Abimbola Scanlon RN) escitalopram (LEXAPRO) tablet 20 mg 20 mg, Oral, DAILY, First dose on 03/28/25 at 1000 1154 ($Given - Provi jae: Abimbola Scanlon RN) fluticasone (FLONASE) 50 MCG/ACT spray 2 spray 2 spray, Both Nostrils, DAILY, First dose on 03/28/25 at 1000 1154 ($Given - Provi jae: Abimbola Scanlon RN) levothyroxine (SYNTHROID/LEVOTHROID) tablet 50 mcg 50 mcg, Oral, DAILY, First dose on 03/28/25 at 1000, Separate oral administration of iron- or calcium-containing products and levothyroxine by at least 4 hours. 1154 ($Given - Provi jae: Abimbola Scanlon RN) loratadine (CLARITIN) tablet 10 mg 10 mg, Oral, DAILY, First dose on 03/28/25 at 1000 1154 ($Given - Provi jae: Abimbola Scanlon RN) pantoprazole (PROTONIX) EC tablet 40 mg 40 mg, Oral, DAILY, First dose on 03/28/25 at 1000 1154 ($Given - Provi jae: Abimbola Scanlon RN) polyethylene glycol (MIRALAX) Packet 17 g 17 g, Oral, DAILY, First dose on 03/28/25 at 1000, 1 Packet = 17 grams. Mix each gram with at least 1/2 ounce (15 mL) of water - 8 ounces for 17 g dose, 4 ounces for 8.5 g dose, 2 ounces for 4 g dose. Follow with the same volume of water. Hold for loose stools unless being administered as part of a bowel prep regimen or bowel clean out. 1154 ($Given - Provi jae: Abimbola Scanlon RN) propranolol (INDERAL) tablet 40 mg 40 mg, Oral, 3 TIMES DAILY, First dose on 03/28/25 at 1000 1154 ($Given - Provi jae: Abimbola Scanlon RN)1400 (Canceled Entry - Provider: Orders Generic Provider - Comment: Automatically canceled at discontinue of medication order) PRN Medication Order 03/26/2025 03/27/2025 03/28/2025 OLANZapine zydis (zyPREXA) ODT tab 10 mg 10 mg, Oral, 3 TIMES DAILY PRN, agitation, Starting on 03/28/25 at 0119, Not to exceed 30 mg in 24 hours. Doses should be at least 2 hours apart. Olanzapine to be used first line for agitation, unless otherwise specified. With dry hands, peel back foil backing and gently remove tablet. Do not push oral disintegrating tablet through foil backing. Administer immediately on tongue and oral disintegrating tablet dissolves in seconds, then swallow with saliva. Liquid not required. 0128 ($Given - Provi jae: Shayna Talbot RN) documented in this encounter Care Teams Automotive Internet Sales Manager Relationship Specialty Start Date End Date Kolton Abreu MD [facility] [address] [place] [address] PCP - General Pediatrics 11/14/11 PROVIDER, BEHAVIORAL DEC HOTEL RESERVATION AGENT 08/25/22 Gregorio Wilson PA-C [facility] [address] [place] [address] Physician Acrylic Fabricator Emergency Medicine 09/16/24 Mitchel Nassar, Anthony [phone] [place] [phone] Audiology 09/16/24 Gabrielle Machado MD [address] [place] [phone] Otolaryngology 09/16/24 Gabrielle Machado MD [address] [place] [phone] Assigned Surgical Provider 01/27/25 documented as of this encounter
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
--- OUTSIDE RECORDS SUMMARY | 2025-03-31 00:32 | XMS_ITS | Encounter Summary ---
Author Organization 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
--- OUTSIDE RECORDS SUMMARY | 2025-03-31 00:32 | XMS_ITS | Encounter Summary ---
Author Organization [facility] Address [address] [facility] 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 Active Suicidal Ideation with any Methods (Not Plan) Without Intent to Act (Lifetime) Yes 03/28/2025 11:44 AM CDT Paylen, Mo V, BOX CAR CHECKER 4. Active Suicidal Ideation with Some Intent to Act, Without Specific Plan (Lifetime) Yes 03/28/2025 11:44 AM CDT Paylen, Mo V, BOX CAR CHECKER 5. Active Suicidal Ideation with Specific Plan and Intent (Lifetime) No 03/28/2025 11:44 AM CDT Paylen, Mo V, LI HAY CHOPPER * Question Answer Date of Assessment Author Frequency (Past 1 Month) 1 03/28/2025 11:46 AM CDT Paylen, Mo V, BOX CAR CHECKER Duration (Past 1 Month) 1 03/28/2025 11:46 AM CDT Paylen, Mo V, BOX CAR CHECKER Controllability (Past 1 Month) 3 03/28/2025 11:46 AM CDT Paylen, Mo V, BOX CAR CHECKER Deterrents (Past 1 Month) 1 03/28/2025 11:4 6 AM CDT Paylen, Mo V, BOX CAR CHECKER * Question Answer Date of Assessment Author Actual Attempt (Past 3 Months) No 03/28/2025 11:46 AM CDT Paylen, Mo V, BOX CAR CHECKER Has subject engaged in non-suicidal self-injurious behavior? (Past 3 Months) No 03/28/2025 11:46 AM CDT Paylen, Mo V, BOX CAR CHECKER Interrupted Attempts (Past 3 Months) No 03/28/2025 11:46 AM CDT Paylen, Mo V, LI HAY CHOPPER Aborted or Self-Interrupted Attempt (Past 3 Months) No 03/28/2025 11:46 AM CDT Paylen, Mo V , BOX CAR CHECKER Preparatory Acts or Behavior (Past 3 Months) No 03/28/2025 11:46 AM CDT Paylen, Mo V, LI HAY CHOPPER * Question Answer Date of Assessment Author Actual Attempt (Lifetime) No 03/28/2025 11:4 4 AM CDT Paylen, Mo V, BOX CAR CHECKER Has subject engaged in non-suicidal self-injurious behavior? (Lifetime) No 03/28/2025 11:44 AM CDT Paylen, Mo V, L ICSW Interrupted Attempts (Lifetime) No 11:44 AM CDT Paylen, Mo V, BOX CAR CHECKER Aborted or Self-Interrupted Attempt (Lifetime) No 03/28/2025 11:44 AM CDT Paylen, Mo V, LI HAY CHOPPER Preparatory Acts or Behavior (Lifetime) No 03/28/2025 11:44 AM CDT Paylen, Mo V, LI HAY CHOPPER * Question Answer Date of Assessment Author Description of Most Severe Ideation (Lifetime) Patient often reports S/I when he is disappointed or frustrated. No known suicide attempts. 03/28/2025 11:44 AM CDT Paylen, Mo V, BOX CAR CHECKER Frequency (Lifetime) 1 03/28/2025 11:44 AM CDT Paylen, Mo V, BOX CAR CHECKER Duration (Lifetime) 1 03/28/2025 1 1:44 AM CDT Paylen, Mo V, BOX CAR CHECKER Controllability (Lifetime) 3 03/28 11:44 AM CDT Paylen, Mo V, BOX CAR CHECKER Deterrents (Lifetime) 1 03/28/2025 11:44 AM CDT Paylen, Mo V, BOX CAR CHECKER documented as of this encounter Plan of Treatment Upcoming Encounters Date Type Department Care Team (Late st Contact Info) Description 06/22/2025 11:00 AM CDT Office Visit [facility] Audiology [address] [phone] Mitchel Nassar, Anthony [address] [place] [address] [phone] 06/22/2025 11:40 AM CDT Office Visit [address] [phone] Gabrielle Machado MD [address] [place] [address] 542305 07/14/2025 11:00 AM CDT Office Visit [facility] [address] [place] [phone] Gabrielle Machado MD [address] [place] [address] Lakia Watson PA-C [address] [phone] documented as of this encounter Visit Diagnoses Not on filedocumented in this encounter Care Teams Regulatory Coordinator Relationship Specialty Start Date End Date Kolton Abreu MD [facility] [address] [place] [address] PCP - General Pediatrics 11/14/11 PROVIDER, BEHAVIORAL DEC TRAUMA PROGRAM MANAGER 08/25/22 Gregorio Wilson PA-C [facility] [address] [place], [place] [phone] Physician Service Crew Leader Emergency Medicine 09/16/24 Mitchel Nassar, Anthony [address] [place] [address] Audiology 09/16/24 Gabrielle Machado MD [address] [place] [address] Otolaryngology 09/16/24 Gabrielle Machado MD [address] [place] [address] [phone] Assigned Surgical Provider 01/27/25 documented as of this encounter
--- OUTSIDE RECORDS SUMMARY | 2025-03-31 00:32 | XMS_ITS | Encounter Summary ---
Author Organization [facility] Address [address] [place] [address]. [place] [address] Care Team Providers Care Surface Supply Breathing Apparatus Name Role Phone Kolton Abreu MD Primary Care Provider [phone] Provider, Behavioral Unavailable Unavailable Gregorio Wilson PA-C Unavailable [phone] Mitchel Nassar AuD Unavailable [phone] Gabrielle Machado MD Unavailable [phone] Gabrielle Machado MD Unavailable [phone] Encounter Details Date Type Department Care Team (Late st Contact Info) Description 03/29/2025 Telephone [facility] - Behavioral Service Line [address] [place] [phone] Sweetie Plummer Social History Tobacco Use Types Packs/Day Years [...] on file 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 Sweetie Plummer Traffic Signal Technician [facility] [phone] documented in this encounter Plan of Treatment Upcoming Encounters Date Type Department Care Team (Late st Contact Info) Description 06/22/2025 11:00 AM CDT Office Visit [facility] Audiology [address] [phone] Mitchel Nassar AuD [id number] [place] [address] [phone] 06/22/2025 11:40 AM CDT Office Visit [address] [phone] Gabrielle Machado MD [address] [place] [address] 07/14/2025 11:00 AM CDT Office Visit [facility] [address] [place] [phone] Gabrielle Machado MD [address] [place] [address] [phone] Lakia Watson PA-C [address] [facility] [address] [place], [place] [address] documented as of this encounter Visit Diagnoses Not on filedocumented in this encounter Care Teams Surface Supply Breathing Apparatus Relationship Specialty Start Date End Date Kolton Abreu MD [facility] [address] [facility] [address] [place] [address] PCP - General Pediatrics 11/14/11 PROVIDER, BEHAVIORAL DEC HIM TECH 08/25/22 Gregorio Wilson PA-C [facility] [address] [place] [address] Physician Sheet Metal Shop Supervisor Emergency Medicine 09/16/24 Mitchel Nassar AuD [address] [place] [address] Audiology 09/16/24 Gabrielle Machado MD [address] [place] [address] [phone] Otolaryngology 09/16/24 Gabrielle Machado MD [address] [place] [address] [phone] Assigned Surgical Provider 01/27/25 documented as of this encounter
--- OUTSIDE RECORDS SUMMARY | 2025-03-31 00:32 | XMS_ITS | Encounter Summary ---
Author Organization [facility] Address [address] [facility] 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 Gender Identity Not on file Sexual Orientation Not on file documented as of this encounter Plan of Treatment Upcoming Encounters Date Type Department Care Team (Late st Contact Info) Description 06/22/2025 11:00 AM CDT Office Visit [facility] Audiology [place] [address] [place] [phone] Mitchel Nassar, AuD [phone] [place] [address] [phone] 06/22/2025 11:40 AM CDT Office Visit [facility] [address] [place] [address] [place] [phone] Gabrielle Machado MD [address] [phone] 07/14/2025 11:00 AM CDT Office Visit [facility] [address] [place] [phone] Gabrielle Machado MD [address] [place] [address] 894365 Lakia Watson PA-C [address] [place], [place] [address] documented as of this encounter Visit Diagnoses Not on filedocumented in this encounter Care Teams Binder Selector Relationship Specialty Start Date End Date Kolton Abreu MD [facility] [address] [facility] 100 [place] [address] PCP - General Pediatrics 11/14/11 PROVIDER, BEHAVIORAL DEC WILDLIFE CONSERVATION OFFICER 08/25/22 Gregorio Wilson PA-C [facility] [address] [place] [address] Physician Senior Occupational Therapist Emergency Medicine 09/16/24 Mitchel Nassar AuD [address] [place] [address] Audiology 09/16/24 Gabrielle Machado MD [address] [place] [address] [phone] Otolaryngology 09/16/24 Gabrielle Machado MD [address] [place] [address] [place] [address] Assigned Surgical Provider 01/27/25 documented as of this encounter
--- OUTSIDE RECORDS SUMMARY | 2025-03-31 00:32 | XMS_ITS | Encounter Summary ---
Author Organization [facility] [address] [place] [address] Care Team Providers Care Mountain Or Glacier Guide Name Role Phone Jocelyne Devlin PA-C Primary Care Provider Encounter Details Date Type Department Care Team (Late st Contact Info) Description 01/12/2016 Emergency Room External to ED PROVIDER SIGNOUT NOTE Social History Tobacco Use Types Packs/Day Years Used Date Smoking Tobacco: Never Assessed Sex and Gender Information Value Date Recorded Sex Assigned at Not on file Legal Sex Male 11:16 AM WILD LIFE MANAGER Gender Identity Not on file Sexual Orientation Not on file documented as of this encounter Plan of Treatment Upcoming Encounters Date Type Department Care Team (Late st Contact Info) Description 03/31/2025 12:00 PM CDT [facility]ment [facility] [address] [place] [address] documented as of this encounter Visit Diagnoses Not on filedocumented in this encounter Additional Health Concerns Infection Onset Date Last Indicated Resolved Time R/O COVID19 02/15/2020 02/17/2020 02/18/2020 6:30 AM CDT R/O COVID19 02/25/2020 02/25/2020 02/26/2020 3:31 AM CDT R/O COVID19 05/24/2020 05/24/2020 05/26/2020 6:13 PM CDT R/O COVID19 10/02/2021 10/02/2021 10/03/2021 4:51 PM WILD LIFE MANAGER documented as of this encounter Care Teams Mountain Or Glacier Guide Relationship Specialty Start Date End Date Jocelyne Devlin PA-C [address] [place] [address] PCP - General Physician [place] Cashier 08/28/16 documented as of this encounter
--- OUTSIDE RECORDS SUMMARY | 2025-03-31 00:33 | XMS_ITS | Encounter Summary ---
Author Organization [facility] Address [address] [address] [facility] [place] [address] Care Team Providers Care Packaging Coordinator Name Role Phone Jocelyne Devlin PA-C Primary Care Provider Encounter Details Date Type Department Care Team (Late st Contact Info) Description 03/09/2015 Correspondence [facility] [address] [place], [place] [phone] [place] [address] [place] [address] PHYSICIANS REPORT Social History Tobacco Use Types Packs/Day Years Used Date Smoking Tobacco: Never Assessed Sex and Gender Information Value Date Recorded Sex Assigned at Not on file 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 Gender Identity Not on file Sexual Orientation Not on file documented as of this encounter Plan of Treatment Upcoming Encounters Date Type Department Care Team (Late st Contact Info) Description 03/31/2025 12:00 PM CDT [facility] [address] [place] [address] documented as of this encounter Visit Diagnoses Not on filedocumented in this encounter Additional Health Concerns Infection Onset Date Last Indicated Resolved Time R/O COVID19 02/15/2020 02/17/2020 02/18/2020 6:30 AM CDT R/O COVID19 02/25/2020 02/25/2020 02/26/2020 3:31 AM CDT R/O COVID19 05/24/2020 05/24/2020 05/26/2020 6:13 PM CDT R/O COVID19 10/02/2021 10/02/2021 10/03/2021 4:51 PM MATHEMATICAL TECHNICIAN documented as of this encounter Care Teams Packaging Coordinator Relationship Specialty Start Date End Date Jocelyne Devlin PA-C [address] [place] [address] PCP - General Physician Hearings Reporter 08/28/16 documented as of this encounter
--- OUTSIDE RECORDS SUMMARY | 2025-03-31 00:33 | XMS_ITS | Encounter Summary ---
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 [address] documented as of this encounter Visit Diagnoses Not on filedocumented in this encounter Additional Health Concerns Infection Onset Date Last Indicated Resolved Time R/O COVID19 02/15/2020 02/17/2020 02/18/2020 6:30 AM CDT R/O COVID19 02/25/2020 02/25/2020 02/26/2020 3:31 AM CDT R/O COVID19 05/24/2020 05/24/2020 05/26/2020 6:13 PM CDT R/O COVID19 10/02/2021 10/02/2021 10/03/2021 4:51 PM PAINTER DECORATOR documented as of this encounter Care Teams Petal Shaper Hand Relationship Specialty Start Date End Date Jocelyne Devlin PA-C [address] [place] [address] PCP - General Physician Cutting Machine Tender 08/28/16 documented as of this encounter
--- OUTSIDE RECORDS SUMMARY | 2025-03-31 00:33 | XMS_ITS | Encounter Summary ---
Author Organization [facility] Address [address] [place] [address] Care Team Providers Care Metal Bonding Assembler Name Role Phone Jocelyne Devlin PA-C Primary Care Provider [phone] Encounter Details Date Type Department Care Team (Late st Contact Info) Description 12/22/2024 [facility] [address] 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 [place], [place] [address] documented as of this encounter Visit Diagnoses Not on filedocumented in this encounter Care Teams Metal Bonding Assembler Relationship Specialty Start Date End Date Jocelyne Devlin PA-C [address] [place], [place] [address] PCP - General Physician [place] Staff 08/28/16 documented as of this encounter
--- OUTSIDE RECORDS SUMMARY | 2025-03-31 00:33 | XMS_ITS | Clinical Summary ---
Author Organization [employer] Address [address] [address] Care Team Providers Care Certified Nurse Midwife Name Role Phone Jocelyne Devlin PA-C Primary Care Provider Source Comments You are receiving this document as you are listed as the primary care provider,follow-up provider, or the patient has been referred to you for consultation.This is in compliance with the Medicare andMedicaid EHR Incentive Program,which states Providers who transition their patient to another setting of careor provider of care or refers their patient to another provider of care shouldprovide summary care record for each transition of care or referral. [employer] Allergies Active Allergy Reactions Criticality Noted Date Comments Aripiprazole Unknown 12/15/2014 Canine Other, see comments Low 05/17/2016 sneezing Medications * This document contains information received from the source organization and may not represent a complete record from that organization. clozapine (CLOZARIL) 50 MG tablet Take 1 Tablet (50 mg) by mouth every evening. 016 Active benztropine (COGENTIN) 1 MG tablet Take 1 Tablet (1 mg) by mouth two times a day. Reported on 02/07/2017 016 Active propranolol (INDERAL) 40 MG tablet TAKE 1 TABLET BY MOUTH THREE TIMES A DAY 270 Tab 3 Active Misc. Devices (SILICONE EAR PLUGS)Indications:Chron ic otitis externa of both ears, unspecified type Place 1 silicone ear plug along each outer ear canal at bedtime or with swimming. 12 Each 6 019 Active Additional Information Patient not taking.Reported on 12/23/2024 acetic acid (VOSOL) 2 % ear drop solution INSTILL 4 DROPS IN BOTH EAR CANALS AT BEDTIME TWICE WEEKLY 15 mL 1 Active divalproex (DEPAKOTE) [address] tablet Take 1 Tablet (250 mg) by mouth daily at bedtime. Active topiramate (TOPAMAX) 50 MG tablet Take 1 Tablet (50 mg) by mouth two times a day. Active OLANZapine (ZYPREXA ZYDIS) [address] 1 Tablet (15 mg) under tongue as needed. Active loratadine (CLARITIN) 10 MG tabletIndications:Nasal congestion Take 1 Tablet (10 mg) by mouth daily. 90 Tablet 3 Active [place]-3 Fatty Acids (FISH OIL) 500 MG Take 1 Capsule (500 mg) by mouth daily with food. 90 Capsule 3 Active polyethylene glycol 3350 (GLYCOLAX) 17 GM/SCOOP powder MIX 1 CAPFUL (17G) IN LIQUID AND TAKE BY MOUTH ONCE DAILY 510 g 11 Active triamcinolone acetonide (KENALOG) 0.1 % creamIndications:Dermat itis Apply topically at bedtime as needed. TO HANDS/FEET, COVER WITH GLOVES/SOCKS. for 2 wks consecutively then d/c use for 1 wk, repeat prn. 80 g 3 Active Additional Information Patient not taking.Reported on 12/23/2024 compounded nitroglycerin 0.2% in lidocaine 5% OINT ointment Insert rectally two times a day. Apply in and around sphincter twice daily as needed for rectal bleeding or pain. 30 g 1 Active omeprazole (PRILOSEC) 20 MG capsuleIndications:Marcie roesophageal reflux disease without esophagitis Take 1 Capsule (20 mg) by mouth daily. Take 1 hour before a meal. 90 Capsule 3 Active clozapine 100 MG tablet Take 3 Tablets (300 mg) by mouth daily at bedtime. Active clozapine 25 MG tablet Take 4 Tablets (100 mg) by mouth every morning. Active divalproex (DEPAKOTE) 500 MG delayed release tablet Take 1 Tablet (500 mg) by mouth three times a day. Active Melatonin 5 MG Take 1 Capsule (5 mg) by mouth daily at bedtime. Active Sunscreens (AVEENO DAILY MOISTURIZER EX) Active ondansetron (ZOFRAN-ODT) 4 MG disintegrating tablet Take 1 Tablet (4 mg) by mouth every 8 hours as needed for Nausea. 20 Tablet Active fluticasone propionate (FLONASE) 50 MCG/ACT nasal solutionIndications:Kentrell al congestion Place 2 Sprays into both nostrils daily. 16 g 3 Active docusate sodium (COLACE) 100 MG capsuleIndications:Cons tipation, unspecified constipation type Take 1 Capsule (100 mg) by mouth two times a day. 180 Capsule 3 Active clindamycin (CLEOCIN T) 1 % lotion Apply topically two times a day. 60 mL 6 Active ketoconazole (NIZORAL) 2 % shampoo APPLY IN SHOWER TO SCALP SHAMPOO 2-3 TIMES WEEKLY 120 mL 1 Active escitalopram (LEXAPRO) 10 MG tablet Take 1 Tablet (10 mg) by mouth daily. Active levothyroxine (SYNTHROID) 50 MCG tabletIndications:Hypot hyroidism, unspecified type (HRC) Take 1 Tablet (50 mcg) by mouth daily. 90 Tablet 3 Active atorvastatin (LIPITOR) 20 MG tabletIndications:Hyper cholesterolemia with hypertriglyceridemia (HRC) Take 1 Tablet (20 mg) by mouth daily at bedtime. 90 Tablet 3 025 2025 Active amLODIPine (NORVASC) 5 MG tabletIndications:Essen tial hypertension (HRC) Take 1 Tablet (5 mg) by mouth daily. 90 Tablet 3 025 2025 Active atropine 1 % eye drop solutionIndications:Pre vention of Secretions of the Respiratory Tract Place 1-2 Drops under tongue every 4 hours. As needed. Indications: Prevention of Secretions of the Respiratory Tract 15 mL 6 Active Active Problems Problem Noted Date Diagnosed Date Intermittent explosive disorder in adult Overview (01/02/2023): follows with psychiatrist-Dr. Joon Aragon & psychologist-Hali Alvarez Depression, major 11/05/2019 Overview (11/05/2019): Follows with an outside mental health provider through [facility] in [place] Essential hypertension 11/05/2019 Hypercholesterolemia with hypertriglyceridemia 1 11/19/2017 Hypothyroidism 05/28/2017 ADHD (attention deficit hyperactivity disorder) 05/17/2016 Oppositional defiant disorder 05/17/2016 PDD (pervasive developmental disorder) 6 Overview (01/02/2023): follows with psychiatrist-Dr. Joon Aragon & psychologist-Hali Alvarez Chronic constipation 04/16/2016 Eczema 01/04/2016 alcohol spectrum disorder 03/09/2015 Resolved Problems Problem Noted Date Diagnosed Date Resolved Date Ingrown toenail 06/01/2021 12/02/2023 Overview (06/01/2021): Added automatically from request for surgery [id number] Other problems related to ho using and economic circumstances 09/06/2020 12/02/2023 Hypertriglyceridemia 06/29/2020 024 Ingrown toenail 07/21/2019 11/05/2019 Overview (07/21/2019): Added automatically from request for surgery [id number] Prediabetes 12/11/2017 06/29/2020 Developmental disorder 05/17/201612/02 Overview (06/07/2016): moderate 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 [address] Medication monitoring encounter (Primary Dx); Encounter for long-term (current) use of medications from Last 3 Months Immunizations Immunization Administration Dates Next Due 4vHPV (Gardasil) 09/27/2015, 5,05/26/2015,2014,03/07/2015 9vHPV (Gardasil 9) 09/27/2015 DTaP 02/13/2007 Flu Vac Preserv Free (3+yrs) 06/15/2024 H1n1 Laiv Medimmune 2-49 Yr (Intranasal) 10/03/2009 H1n1 Miv Sanofi 3+ Yr (Injected) 10/03/2009 HepA Adult (19+ yrs) 06/04/2017,02/13/2007 HepA Ped/Adol (1-18 yrs) 02/13/2007 HepB Adult (Engerix-B, 20+ y rs, 3 dose series) 12/31/2018,07/10/2018,05/22/2016 Influenza (Flucelvax), Prese rv Free QIV 07/24/2023,09/15/2022 Influenza IIV4 (Quadrivalent ) 0.5mL ([id number]) 08/01/2021,06/26/2020,07/15/2019,2017,06/04/2017,09/27/2015,09/27/2015 MCV4 (Menactra) 03/07/2015,02/13/2007,02/13/2007 MCV4 Menveo 2m.+ (two vial) 03/07/2015 Moderna Bivalent 12+ 09/15/2022 Moderna COVID-19 12+ 06/15/2024 Moderna Monovalent 12+ 11/25/2021,11/17/2020, PCV20 (Vednlys97) 01/02/2023 Pfizer COVID-19 12+ 07/24/2023 Pfizer Monovalent 12+ 04/28/2022 TB Skin Test (PPD) 05/22/2016 TDAP (ADACEL) 11/16/2006 TDAP (BOOSTRIX) 02/13/2007 Tdap 06/04/2017,11/16/2006 Varicella 03/07/2015, 5,02/13/2007,2006 Social History Tobacco Use Types Packs/Day Years [...] on file Legal Sex Male 11:16 AM COMPUTER ART INSTRUCTOR Gender Identity Not on file Sexual Orientation Not on file Occupation Industry Job Start Date Job End Date Disabled Not on file Not on file Not on file Last Filed Vital Signs Vital Sign Reading Time Taken Comments Blood Pressure 125/65 12/23/2024 5:54 PM CDT Pulse 65 12/23/2024 5:54 PM CDT Temperature 36.4 C (97.5 F) 12/23/2024 5:54 PM CDT Respiratory Rate 18 11/05/2024 7:46 PM COMPUTER ART INSTRUCTOR Oxygen Saturation 100% 12/23/2024 5:54 PM CDT Inhaled Oxygen Concentration - - Weight 104 kg (229 lb 3.2 oz) 12/21/2024 11:05 A M CDT Height 172.7 cm (5' 8) 12/02/2023 11:29 AM COMPUTER ART INSTRUCTOR Body Mass Index 34.85 12/02/2023 11:29 AM COMPUTER ART INSTRUCTOR Plan of Treatment Upcoming Encounters Date Type Department Care Team (Late st Contact Info) Description 03/31/2025 12:00 PM CDT Appointment [facility] [place] [address] [place] [address] Health Maintenance Due Date Last Done Comments Adult Preventive Visit 12/21/2026 5, 12/02/2023, 01/02/2023, Additional history exists DTaP/Tdap/Td Vaccine (4 - Tdap) 06/04/2027 06/04/2017, 02/13/2007, 02/13/2007, Additional history exists Zoster/Shingles Vaccine (1 of 2) 2046 MCV4 Vaccine Completed 03/07/2015, 10/2014, 02/13/2007, Additional history exists Varicella Vaccine Completed 03/07/2015, , 02/13/2007, Additional history exists HPV Vaccine Completed 09/27/2015, 09/07, 05/26/2015, Additional history exists HIV Screening (Preventive Services) Completed 10/31/2016, 02/21/2013 Hep C Screening (Preventive Services) Completed 10/31/2016 HepA Vaccine Completed 06/04/2017, 02/04, 02/13/2007 HepB Vaccine Completed 12/31/2018, 01/2018, 05/22/2016 Pneumococcal Vaccine Aged Out 01/02/2023 No long er eligible based on patient's age to complete this topic COVID-19 Vaccine Completed 06/15/2024, , 09/15/2022, Additional history exists Influenza Vaccine Completed 06/15/2024, , 09/15/2022, Additional history exists Hib Vaccine Aged Out No longer eligi ble based on patient's age to complete this topic IPV (Polio) Vaccine Aged Out No longe r eligible based on patient's age to complete this topic Meningococcal B Vaccine Aged Out No l onger eligible based on patient's age to complete this topic Procedures Procedure Name Priority Date/Time Associated Diagnosis Comments CBC WITH DIFFERENTIAL REVIEW Routine 03/03/2025 11:58 AM CDT Encounter for long-term (current) use of medications PRELIMINARY AUTOMATED NEUT COUNT Routine 03/03/2025 11:58 AM CDT Encounter for long-term (current) use of medications HEMATOLOGY, PRELIM Routine 03/03/2025 11 :58 AM CDT Encounter for long-term (current) use of medications HIV-1 P24 AND HIV-1/HIV-2 ANTIBODIES Routine 10/31/2016 1:46 PM COMPUTER ART INSTRUCTOR Screening for HIV (human immunodeficiency virus) HEPATITIS PANEL ACUTE WITH REFLEX TO CONFIRMATION Routine 10/31/2016 1:46 PM COMPUTER ART INSTRUCTOR Need for hepatitis C screening test from Last 3 Months or Most Recently Relevant to Health Maintenance Results * Prelim Automated Neutrophil Count (03/03/2025 11:58 AM CDT) Automated Neutrophil Count (Prelim) 2.0 10(9)/L 03/03/2025 12:30 PM CDT [facility] Blood Venipuncture / Unknown 03/03/2025 11:58 AM CDT 03/03/2025 11:58 AM CDT us Shashi Rodriguez APRN, MEDICAL CODING MANAGER LAB_1 Final Result [facility] [address] [place] [address] * (ABNORMAL) CBC with Differential Review (03/03/2025 11:58 AM CDT) Hematology Review 03/03/2025 7:03 PM CDT [facility] WBC 4.6 3.5 - 10.5 x10(9)/L 03/03/2025 7:03 PM CDT [facility] RBC 4.55 4.32 - 5.72 x10(12)/L 03/03/2025 7:03 PM CDT [facility] Hemoglobin 13.4(L) 13.5 - 17.5 g/dL 03/03/2025 7:03 PM CDT [facility] HCT 40.6 38.8 - 50.0 % 03/03/2025 7:03 PM CDT [facility] MCV 89.2 80.0 - 100.0 fL 03/03/2025 7:03 PM CDT [facility] MCH 29.5 27.6 - 33.3 pg 03/03/2025 7:03 PM CDT [facility] MCHC 33.0 31.5 - 35.2 g/dL 03/03/2025 7:03 PM CDT [facility] RDW 13.7 11.9 - 15.5 % 03/03/2025 7:03 PM CDT [facility] Platelets 176 150 - 450 x10(9)/L 03/03/2025 7:03 PM CDT [facility] Automated NRBC 0 <=0 /100 WBC 03/03/2025 7:03 PM CDT [facility] Neutrophil Absolute 2.1 1.7 - 7.0 10(9)/L 03/03/2025 7:03 PM CDT [facility] Lymphocyte Absolute 2.1 1.0 - 4.8 10(9)/L 03/03/2025 7:03 PM CDT [facility] Monocyte Absolute 0.3 0.2 - 0.9 10(9)/L 03/03/2025 7:03 PM CDT [facility] Eosinophil Absolute 0.2 0.0 - 0.5 10(9)/L 03/03/2025 7:03 PM CDT [facility] Basophil Absolute 0.0 0.0 - 0.3 10(9)/L 03/03/2025 7:03 PM CDT [facility] Immature Granulocyte % 0.7(H) 0.0 - 0.5 % 03/03/2025 7:03 PM CDT [facility] Immature Granulocyte Absolute 0.0 <=0.0 10(9)/L 03/03/2025 7:03 PM CDT [facility] Blood Venipuncture / Unknown 03/03/2025 11:58 AM CDT 03/03/2025 12:30 PM CDT us Shashi Rodriguez TEST ARCHITECT, MEDICAL CODING MANAGER LAB_1 Final Result [facility] [address] * (ABNORMAL) Prelim WBC, HGB, and PLT (03/03/2025 11:58 AM CDT) [facility] WBC 4.7 3.5 - 10.5 x10(9)/L 03/03/2025 12:29 PM CDT [facility] Hemoglobin 13.4(L) 13.5 - 17.5 g/dL 03/03/2025 12:29 PM CDT [facility] Platelets 175 150 - 450 x10(9)/L 03/03/2025 12:29 PM CDT [facility] Blood Venipuncture / Unknown 03/03/2025 11:58 AM CDT 03/03/2025 11:58 AM CDT us Shashi Rodriguez APRN, MEDICAL CODING MANAGER LAB_1 Final Result Performing Organization Address City/[facility]/ZIP Co de Phone Number [facility] [address] [place] [address] * HIV-1 p24 AND HIV-1/HIV-2 ANTIBODIES (10/31/2016 1:46 PM COMPUTER ART INSTRUCTOR) Pathologist [facility] HIV-1 p24 Ag and HIV-1/HIV-2 Ab Nonreactive Nonreactive PN SOFT 10/31/2016 1:46 PM COMPUTER ART INSTRUCTOR 10/31/2016 6:29 PM COMPUTER ART INSTRUCTOR Narrative PN SOFT - 10/31/2016 7:28 PM COMPUTER ART INSTRUCTOR Performed at [address] [address] CLIA number [id number] us Jocelyne Devlin PA-C LAB_1 Final Resul t Performing Organization Address [facility] de Phone Number SOFT [address] [place] [id number] * Hepatitis Panel with Reflex to Confirmation (10/31/2016 1:46 PM COMPUTER ART INSTRUCTOR) Hepatitis A Virus AB IgM Nonreactive Non Reactive PN SOFT Hepatitis B Core IgM Antibody Nonreactive Nonreactive PN SOFT Hep B Surf Ag Nonreactive Nonreactive PN SOFT Hepatitis C Antibody Nonreactive Nonreactive PN SOFT 10/31/2016 1:46 PM COMPUTER ART INSTRUCTOR 10/31/2016 6:30 PM COMPUTER ART INSTRUCTOR Narrative PN SOFT - 10/31/2016 7:28 PM COMPUTER ART INSTRUCTOR Performed at [address] [address] CLIA number [id number] us Jocelyne Devlin PA-C LAB_1 Final Resul t PN SOFT [address] [place] [address] from Last 3 Months or Most Recently Relevant to Health Maintenance Insurance MEDICA ACCESSABILITY MEDICA ACCESSABILITY Care Teams Certified Nurse Midwife Relationship Specialty Start Date End Date Jocelyne Devlin PA-C [address] [place] [address] PCP - General Physician Tissue Packer 08/28/16
--- OUTSIDE RECORDS SUMMARY | 2025-03-31 00:33 | XMS_ITS | Clinical Summary ---
Author Organization [place] Address [address] [facility] [place] [address] Care Team Providers Care Car Body Inspector Name Role Phone Kolton Abreu MD Primary Care Provider [phone] Provider, Behavioral Unavailable Unavailable Gregorio Wilson PA-C Unavailable [phone] Mitchel Nassar AuD Unavailable [phone] Gabrielle Machado MD Unavailable [phone] Gabrielle Machado MD Unavailable [phone] Allergies Active Allergy Reactions Criticality Noted Date Comments Aripiprazole Unknown 05/31/2006 Dog Epithelium (Canis Lupus Familiaris) Difficulty breathing Low 05/17/2016 PN: sneezing Medications amLODIPine (NORVASC) 5 MG tablet Take 1 tablet by mouth daily. 1 Active OLANZapine zydis (ZYPREXA) [address] 15 mg under the tongue daily as needed (extreme agitation) Active omeprazole (PRILOSEC) [address] capsule Take 20 mg by mouth daily 2 Active propranolol (INDERAL) 40 MG tablet Take 40 mg by mouth 3 times daily 2 Active divalproex sodium delayed-releas e (DEPAKOTE) [address] tablet Take 1,000 mg by mouth 2 times daily. 1 Active fluticasone (FLONASE) 50 MCG/ACT nasal spray INSTILL 2 SPRAYS IN EACH NOSTRIL DAILY 1 Active loratadine (CLARITIN) 10 MG tablet Take 10 mg by mouth daily 2 Active cloZAPine (CLOZARIL) 100 MG tablet Take 300 mg by mouth at bedtime. Take with 50mg tablet for total dose of 350 mg at bedtime Active melatonin 5 MG CAPS Take 5 mg by mouth At Bedtime Active levothyroxine (SYNTHROID/LEV OTHROID) 50 MCG tablet Take 50 mcg by mouth daily 2 Active cloZAPine (CLOZARIL) 25 MG tablet Take 100 mg by mouth daily. Active fish oil-omega-3 fatty acids 500 MG capsule Take 500 mg by mouth daily Active docusate sodium (COLACE) 100 MG capsule Take 100 mg by mouth 2 times daily Active ketoconazole (NIZORAL) 2 % external shampoo Apply topically every 3 days After showers Active clindamycin (CLEOCIN T) 1 % external lotion Apply topically 2 times daily Active polyethylene glycol (MIRALAX) 17 GM/Dose powder Take 1 capful by mouth daily Active ondansetron (ZOFRAN ODT) 4 MG ODT tab Take 4 mg by mouth every 8 hours as needed for nausea Active acetic acid (VOSOL) 2 % otic solution Place 4 drops into both ears twice a week Active cloZAPine (CLOZARIL) 50 MG tablet Take 50 mg by mouth at bedtime. Take with [id number] tablets for total dose of 350 mg at bedtime Active atorvastatin (LIPITOR) 20 MG tablet Take 20 mg by mouth at bedtime. Active atropine 1 % ophthalmic solution Place 1-2 drops under the tongue 3 times daily. Active escitalopram (LEXAPRO) 20 MG tablet Take 20 mg by mouth daily. Active glycopyrrolate (GLYCATE) 2 MG tablet Take 2 mg by mouth 3 times daily 2 03/28/20 25 Discontinu ed(Med Rec(No AVS / No eCancel)) benztropine (COGENTIN) 1 MG tablet Take 1 mg by mouth 2 times daily 2 03/28/20 25 Discontinu ed(Med Rec(No AVS / No eCancel)) topiramate (TOPAMAX) 100 MG tablet Take 100 mg by mouth 2 times daily (Take with 50 mg tablet for a total dose of 150 mg) 2 03/28/20 25 Discontinu ed(Med Rec(No AVS / No eCancel)) topiramate (TOPAMAX) 50 MG tablet Take 50 mg by mouth 2 times daily (Take with 100 mg tablet for a total dose of 150 mg) 03/28/20 25 Discontinu ed(Med Rec(No AVS / No eCancel)) Semaglutide 7 MG TABS Take 7 mg by mouth daily 03/28/20 25 Discontinu ed(Med Rec(No AVS / No eCancel)) triamcinolone (KENALOG) 0.1 % external cream Apply topically nightly as needed for irritation Apply to severely dry cracked skin on hands 03/28/20 25 Discontinu ed(Med Rec(No AVS / No eCancel)) Active Problems Problem Noted Date Diagnosed Date Autism spectrum disorder 03/28/2025 Developmental delay 10/03/2021 Hypertriglyceridemia 06/29/2020 Depression, major 11/05/2019 Overview (06/01/2022): Follows with an outside mental health provider through [facility] in [place] Essential hypertension 11/05/2019 Hypothyroidism 05/28/2017 Pervasive developmental disorder 05/17/2016 Overview (06/01/2022): follows with psychiatrist-Dr. Abiodnu Hernandez & psychologist-Hali Alvarez ADHD (attention deficit hyperactivity disorder) 05/17/2016 Episodic mood disorder 05/17/2016 Chronic constipation 04/16/2016 Diabetes mellitus type 2, uncomplicated 04/16/20 16 Intermittent explosive disorder 01/12/2016 Aggressive behavior 01/02/2016 Encounters Date Type Department Care Team Description 03/29/2025 6:58 PM CDT - 03/30/2025 1:[address] [facility] Emergency Dept [address] [place] [address] Jerson Lopez MD Aggressive behavior Discharge Disposition: Home or Self Care 03/29/2025 Travel 03/29/2025 Telephone [facility] Services - Behavioral Service Line [address] [place] [address] Sweetie Plummer 03/28/2025 Travel 03/27/2025 11:56 PM CDT - 03/28/2025 12:[address] [facility] Emergency Dept [address] [place] [id number] [phone] Jerson Lopez MD Walker, MD Calista Boogie, Joon Vargas MD Suicidal ideation Discharge Disposition: Custodial 01/19/2025 11:00 AM CDT Office Visit [address] [address] Gabrielle Machado MD SNHL (sensory-neural hearing loss), asymmetrical (Primary Dx); Acute suppurative otitis media of right ear with spontaneous rupture of tympanic membrane, recurrence not specified; MONO (obstructive sleep apnea) 01/19/2025 10:15 AM CDT Office Visit [facility] [address] [address] Mitchel Nassar, Anthony SNHL (sensory-neural hearing loss), asymmetrical (Primary Dx) 01/19/2025 Travel from Last 3 Months Social History Tobacco Use Types Packs/Day Years [...] on file Legal Sex Male 4:38 AM [employer] Gender Identity Not on file Sexual Orientation Not on file Last Filed Vital Signs Vital Sign Reading Time Taken Comments Blood Pressure 131/81 03/30/2025 1:26 AM CDT Pulse 70 03/30/2025 1:26 AM CDT Temperature 36.1 C (96.9 F) 03/30/2025 1:26 AM CDT Respiratory Rate 22 03/30/2025 1:26 AM CDT Oxygen Saturation 93% 03/30/2025 1:26 AM CDT Inhaled Oxygen Concentration - - Weight 97.4 kg (214 lb 11.3 oz) 09/15/2024 1:15 PM [employer] Height 160 cm (5' 3) 09/15/2024 1:15 PM [employer] Body Mass Index 38.03 09/15/2024 1:15 PM [employer] Plan of Treatment Upcoming Encounters Date Type Department Care Team (Late st Contact Info) Description 06/22/2025 11:00 AM CDT Office Visit [facility] Audiology [address] [phone] Mitchel Nassar, AuD [id number] [place] [phone] 06/22/2025 11:40 AM CDT Office Visit [address] [phone] Gabrielle Machado MD [address] [place] [address] [phone] 07/14/2025 11:00 AM CDT Office Visit [facility] Sleep [facility] [address] [place] [phone] Gabrielle Machado MD [address] [place] [address] Lakia Watson PA-C [address] [id number] Health Maintenance Due Date Last Done Comments A1C 1996 ANNUAL REVIEW OF HM ORDERS 1996 DEPRESSION ACTION PLAN 1996 DIABETIC FOOT EXAM 1996 EYE EXAM 1996 MICROALBUMIN 1996 PHQ-9 1996 LIPID 03/10/2012 03/10/2011, 04/06, 05/29/2009, Additional history exists HEPATITIS C SCREENING 2014 TSH W/FREE T4 REFLEX 06/10/2023 06/10/2022, 03/10/2011, 03/10/2011, Additional history exists BMP 10/11/2023 10/11/2022, 08/0 10/2021, 03/10/2011, Additional history exists YEARLY PREVENTIVE VISIT 12/21/2025 12/22/19, 12/02/2023, 01/02/2023, Additional history exists ADVANCE CARE PLANNING 04/30/2027 04/30/2022 DTAP/TDAP/TD VACCINE (4 - Td or Tdap) 06/04/2027 06/04/2017, 02/13/2007, 02/13/2007, Additional history exists ZOSTER VACCINE (1 of 2) 2046 HIV SCREENING Completed 02/21/2013 MENINGITIS VACCINE Completed 03/07/2015, 02/13/2007 HPV VACCINE Completed 09/27/2015, 05/08, 03/07/2015 HEPATITIS B VACCINE Completed 12/31/2018, 07/10/2018, 05/22/2016 PNEUMOCOCCAL VACCINE: PEDIAT RICS (0 to 5 YEARS) AND AT-RISK PATIENTS (6 to 49 YEARS) Completed 01/02/2023 COVID-19 VACCINE Completed 06/15/2024, , 09/15/2022, Additional history exists INFLUENZA VACCINE Completed 06/15/2024, , 09/15/2022, Additional history exists Procedures Procedure Name Priority Date/Time Associated Diagnosis Comments CBC WITH PLATELETS & DIFFERENTIAL STAT 03/28/2025 11:44 AM CDT CBC WITH PLATELETS AND DIFFERENTIAL STAT 03/28/2025 11:44 AM CDT CO TYMPANOMETRY Routine 01/19/2025 11:24 AM CDT SNHL (sensory-neural hearing loss), asymmetrical CO SPEECH THRESHOLD AUDIOMETRY Routine 01/19/2025 11:24 AM CDT SNHL (sensory-neural hearing loss), asymmetrical CO AUDIOMETRY, AIR & BONE Routine 01/19/2025 11:24 AM CDT SNHL (sensory-neural hearing loss), asymmetrical AUDIOGRAM/TYMPANOGRAM - INTERFACE 01/19/2025 10:10 AM CDT AUDIOGRAM/ABR/OAE/TYP M - HIM SCAN 01/19/2025 12:00 AM CDT AUDIOGRAM/ABR/OAE/TYP M - HIM SCAN 01/10/2025 12:00 AM CDT BASIC METABOLIC PANEL STAT 10/11/2022 12:52 AM [employer] TSH STAT 06/10/2022 11:10 PM CDT HIV 1 AND 2 ANTIBODY (QUEST) Routine 02/21/2013 9:26 AM CDT LIPID PROFILE Routine 03/10/2011 7:40 AM CDT from Last 3 Months or Most Recently Relevant to Health Maintenance Results * (ABNORMAL) CBC with platelets and [...] NRBCs 0.0 10e3/uL 03/28/2025 12:22 PM CDT [facility] Blood STRUCTURE OF RIGHT UPPER LIMB / Unknown Venipuncture / Unknown 03/28/2025 11:44 AM CDT 03/28/2025 11:46 AM CDT us Joon Grigsby MD LAB - BLOOD ORDERABLES Fin al Result LABORATORY [facility] Lab [address] Lab (1st floor, no room number) [place] [address], [facility] * Audiogram/Tympanogram ??? Interface (01/19/2025 10:10 AM CDT) 01/19/2025 10:1 0 AM CDT us Provider Unknown PROCEDURES Final Result * Audiogram/ABR/OAE/Tymp - HIM Scan (01/19/2025 12:00 AM CDT) 01/19/2025 Provider Outside PROCEDURES Final Result * Audiogram/ABR/OAE/Tymp - HIM Scan (01/10/2025 12:00 AM CDT) 01/10/2025 Provider Outside PROCEDURES Final Result * (ABNORMAL) Basic metabolic panel (10/11/2022 12:52 AM [employer]) Sodium 144 136 - 145 mmol/L 10/11/2022 1:24 AM [facility] Potassium 3.3(L) 3.4 - 5.3 mmol/L 10/11/2022 1:24 AM [facility] Chloride 107 98 - 107 mmol/L 10/11/2022 1:24 AM [facility] Carbon Dioxide (CO2) 25 22 - 29 mmol/L 10/11/2022 1:24 AM [facility] Anion Gap 12 7 - 15 mmol/L 10/11/2022 1:24 AM [facility] Urea Nitrogen 13.3 6.0 - 20.0 mg/dL 10/11/2022 1:24 AM [facility] Creatinine 0.98 0.67 - 1.17 mg/dL 10/11/2022 1:24 AM [facility] Calcium 9.8 8.6 - 10.0 mg/dL 10/11/2022 1:24 AM [facility] Glucose 92 70 - 99 mg/dL 10/11/2022 1:24 AM [facility] GFR Estimate >90 >60 mL/min/1.7 3m2 10/11/2022 1:24 AM [facility] Comment:Effective September 072020 eGFRcr in adults is calculated using the 2020 CKD-EPI creatinine equation which includes age and gender (Ai et al., NEJM, DOI: 10.1056/UJFBnd6330884) Blood BLOOD SPECIMEN / Unknown Venipuncture / Unknown 10/11/2022 12:52 AM [employer] 10/11/2022 12:56 AM [employer] Jeferson Mcgowan DO LAB - BLOOD ORDERABLES F inal Result LABORATORY [facility] [address] Lab (1st floor, no room number) [place] [address], [facility] [phone] * TSH (06/10/2022 11:10 PM CDT) TSH 3.32 0.40 - 4.00 mU/L 06/10/2022 11:52 PM CDT LABORATORY Blood STRUCTURE OF RIGHT UPPER LIMB / Unknown Venipuncture / Unknown 06/10/2022 11:10 PM CDT 06/10/2022 11:22 PM CDT us Jean Sargent MD LAB - BLOOD ORDERABLES Fi nal Result LABORATORY [facility] Acute Care Lab [address] 1st floor, [address] [place] [address], [facility] [phone] * HIV 1 and 2 Antibody (02/21/2013 9:26 AM CDT) HIV 1&2 Antibody Negative NEG [facility] 02/21/2013 9:26 AM CDT 02/21/2013 9:29 AM CDT us Kolton Abreu MD LAB - BLOOD ORDERABLES Final R esult [facility] [address] [place] [address] * Lipid Profile (03/10/2011 7:40 AM CDT) Cholesterol 166 0 - 200 mg/dL [facility] Comment: LDL Cholesterol is the primary guide to therapy. The NCEP recommends further evaluation of: patients with cholesterol greater than 200 mg/dL if additional risk factors are present, cholesterol greater than 240 mg/dL, triglycerides greater than 150 mg/dL, or HDL less than 40 mg/dL. Triglycerides 128 0 - 150 mg/dL [facility] HDL Cholesterol 57 40 - 110 mg/dL [facility] LDL Cholesterol Calculated 84 0 - 129 mg/dL [facility] Comment: LDL Cholesterol is the primary guide to therapy: LDL-cholesterol goal in high risk patients is <100 mg/dL and in very high risk patients is <70 mg/dL. 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 Advance Directives and Living Will 04/30/2022 Sruthi ([place] GUARD[place]) Kevin ([place] GU[place]) Cesario Legal Guardianship 04-28-2014 Care Teams Car Body Inspector Relationship Specialty Start Date End Date Kolton Abreu MD [facility] [address] [place] [address] PCP - General Pediatrics 11/14/11 PROVIDER, BEHAVIORAL DEC PERFORATOR 08/25/22 Gregorio Wilson PA-C [facility] [address] [place] [address] Physician Chucking And Sawing Machine 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
== END 2025-03-29 18:28 | disposition home or self-care (01) ==
LOC: AMB 03-30 11:13
PROVIDERS: Visit Provider Family Medicine
DX: F91.9 Conduct disorder, unspecified (principal)
CPT/HCPCS: A0425; A0429

== ENCOUNTER 2025-05-05 22:49 | Outpatient (CLI) | payer OTHER, SELFPAY | END 2025-05-05 22:50 | disposition home or self-care (01) | LOC: AMB 05-13 14:20 | PROVIDERS: Visit Provider Family Medicine | DX: F29 Unspecified psychosis not due to a substance or known physiological condition (principal) | CPT/HCPCS: A0425; A0429 ==

== ENCOUNTER 2025-05-08 22:04 | Outpatient (CLI) | payer OTHER, SELFPAY | END 2025-05-08 22:05 | disposition home or self-care (01) | LOC: AMB 05-13 12:45 | PROVIDERS: Visit Provider Family Medicine | DX: F91.9 Conduct disorder, unspecified (principal) | CPT/HCPCS: A0425; A0429 ==

== ENCOUNTER 2025-05-30 23:07 | Outpatient (CLI) | payer OTHER, SELFPAY | END 2025-05-30 23:08 | disposition home or self-care (01) | PROVIDERS: Visit Provider Family Medicine | DX: F91.9 Conduct disorder, unspecified (principal) | CPT/HCPCS: A0998 ==

== ENCOUNTER 2025-07-12 13:39 | Outpatient (CLI) | payer OTHER, SELFPAY | END 2025-07-12 13:40 | disposition home or self-care (01) | LOC: AMB 07-14 09:39 | PROVIDERS: Visit Provider Emergency Medicine | DX: R41.82 Altered mental status, unspecified (principal); R53.1 Weakness | CPT/HCPCS: A0425; A0427 ==

== ENCOUNTER 2025-07-24 21:22 | Outpatient (CLI) | payer OTHER, SELFPAY | END 2025-07-24 21:23 | disposition home or self-care (01) | LOC: AMB 08-19 14:22 | PROVIDERS: Visit Provider Family Medicine | DX: F91.9 Conduct disorder, unspecified (principal) | CPT/HCPCS: A0425; A0429 ==

== ENCOUNTER 2025-07-26 23:22 | Outpatient (CLI) | payer OTHER, SELFPAY | END 2025-07-26 23:23 | disposition home or self-care (01) | LOC: AMB 07-27 09:32 | PROVIDERS: Visit Provider Family Medicine | DX: R45.851 Suicidal ideations (principal); F91.9 Conduct disorder, unspecified | CPT/HCPCS: A0425; A0427 ==

== ENCOUNTER 2025-09-15 13:01 | Outpatient (CLI) | payer OTHER, SELFPAY | END 2025-09-15 13:02 | disposition home or self-care (01) | LOC: AMB 09-16 18:59 | PROVIDERS: Visit Provider Family Medicine | DX: R41.82 Altered mental status, unspecified (principal); F91.9 Conduct disorder, unspecified | CPT/HCPCS: A0425; A0427 ==

== ENCOUNTER 2025-09-27 10:55 | Outpatient (CLI) | payer OTHER, SELFPAY | END 2025-09-27 10:56 | disposition home or self-care (01) | LOC: AMB 09-29 17:53 | PROVIDERS: Visit Provider Family Medicine | DX: R06.09 Other forms of dyspnea (principal); U07.1 COVID-19 | CPT/HCPCS: A0425; A0427 ==